=== PATIENT | male | born 1985 | race Caucasian/White ===

== ENCOUNTER 2019-04-21 22:35 | Emergency (ER) | payer MEDICARE, MEDICAID ==
--- NOTE | 2019-04-21 22:46 | EDM.PDOC ---
ED HPI GENERAL MEDICAL PROBLEM - General Chief Complaint: Gastrointestinal Problem Stated Complaint: MEDICAL VIA NORTH Time Seen by Provider: 04/21/19 22:41 Source of Information: Reports: EMS, Old Records, RN History Limitations: Reports: No Limitations - History of Present Illness INITIAL COMMENTS - FREE TEXT/NARRATIVE: 34 yo mentally retarded [facility] resident pulled his G-tube out and the staff discarded it and sent him in by EMS. Patient normally gets his catheters changed in his provider's office so the [facility] does not have a spare does not know the size. Onset: Today Onset Date: 04/21/19 Duration: Minutes: Location: Reports: Abdomen Severity: Mild Improves with: Reports: Other (G-tube replacement) Worsens with: Reports: Other (time elapsed without a catheter in the stoma of the feeding tube site. 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 Constitutional: Reports: No Symptoms GI/Abdominal: Reports: Other (G-tube out.) ED EXAM, GI/ABD - Physical Exam Exam: See Below Exam Limited By: No Limitations General Appearance: Alert, WD/WN, No Apparent Distress GI/Abdominal Exam: Other (G-tube missing.) ED ABDOMINAL/GI PROCEDURES - Additional/Other Procedure(s) Procedure(s) (Free Text): Espitia catheter placed into the G-tube site to keep G-tube site from closing up overnight. Course - Orders/Labs/Meds Orders: Active Orders 24 hr Category Date Time Status Espitia Catheter Insertion [Insert Urinary Catheter] [OM. Care 04/21/19 22:45 Ordered PC] Q24H Urinary Catheter Assessment [RC] ASDIRECTED Care 04/21/19 22:38 Active Departure - Departure Time of Disposition: 22:50 Disposition: Home, Self-Care 01 Condition: Good Clinical Impression: Gastrojejunostomy tube dislodgement - Discharge Information *PRESCRIPTION DRUG MONITORING PROGRAM REVIEWED*: Not Applicable *COPY OF PRESCRIPTION DRUG MONITORING REPORT IN PATIENT THU: Not Applicable Referrals: PCP,None [Primary Care Provider] - Forms: ED Department Discharge Additional Instructions: Have Jerry seen in his provider's office early tomorrow to get a new G-tube placed. Protect the espitia as best you can tonight from dislodgement, this will keep the G-tube site from healing shut. Cannot use the Espitia catheter for feeling tonight. Sepsis Event Note - Focused Exam Date Exam was Performed: 04/21/19 Time Exam was Performed: 22:50 - My Orders Last 24 Hours: My Active Orders 04/21/19 22:38 Urinary Catheter Assessment [RC] ASDIRECTED 04/21/19 22:45 Espitia Catheter Insertion [Insert Urinary Catheter] [OM.PC] Q24H - Assessment/Plan Last 24 Hours: My Active Orders 04/21/19 22:38 Urinary Catheter Assessment [RC] ASDIRECTED 04/21/19 22:45 Espitia Catheter Insertion [Insert Urinary Catheter] [OM.PC] Q24H
== END 2019-04-21 23:18 | disposition home or self-care (01) ==
LOC: JP.ED 22:35
DX: K94.23 Gastrostomy malfunction (principal); Z88.1 Allergy status to other antibiotic agents; Z88.0 Allergy status to penicillin
CPT/HCPCS: 43762; 99283; 99283-25

== ENCOUNTER 2019-04-22 08:55 | Day surgery (SDC) | payer MEDICARE, MEDICAID ==
--- NOTE | 2019-05-03 15:06 | PROC ---
DATE OF PROCEDURE: 04/22/2019 SURGEON: Constantino Burns MD PREOPERATIVE DIAGNOSIS: Dislodged gastrostomy tube. POSTOPERATIVE DIAGNOSIS: Replacement of gastrostomy tube following dilation of gastrostomy ([id number]). ANESTHESIA: None. INDICATION FOR PROCEDURE: A 34-year-old male with a preexisting gastrostomy tube that was dislodged in the residential last night. A small tube had been placed, and the patient presents now to the hospital for replacement of the gastrostomy tube. DETAILS OF PROCEDURE: In the [facility] procedure room, the patient was in a supine position and the previously placed small gastrostomy tube was removed. The gastrostomy was quite narrow at this point and it was then dilated up to a 30-Faroese size with a balloon dilator and following this a 20-Faroese gastrostomy tube was placed and the balloon inflated with some saline and a dressing applied. There were no evident complications. Constantino Burns MD /[id number]
== END 2019-04-22 13:00 | disposition home or self-care (01) ==
LOC: JP.SDS 08:55
PROVIDERS: ATTEND Surgery
DX: T85.528A Displacement of other gastrointestinal prosthetic devices, implants and grafts, initial encounter (principal); K94.23 Gastrostomy malfunction; Y83.3 Surgical operation with formation of external stoma as the cause of abnormal reaction of the patient, or of later complication, without mention of misadventure at the time of the procedure
CPT/HCPCS: 99213

== ENCOUNTER 2019-05-26 22:04 | Emergency (ER) | payer MEDICARE, MEDICAID ==
--- NOTE | 2019-05-26 22:46 | EDM.PDOC ---
ED HPI GENERAL MEDICAL PROBLEM - General Chief Complaint: Genitourinary Problem Stated Complaint: MEDICAL VIA NORTH Time Seen by Provider: 05/26/19 22:30 Source of Information: Reports: Old Records, RN History Limitations: Reports: Other (patient not able to communicate) - History of Present Illness INITIAL COMMENTS - FREE TEXT/NARRATIVE: 34 yo male with severe mental retardation and an indwelling suprapubic catheter is sent in for a nonfunctioning catheter and bloody urine. No fever reported. Lives at the [facility]. Here via EMS. A new catheter had just been placed this morning as part of his routine of monthly catheter changes. Has a hx of frequent UTI's. Onset: Today Onset Date: 05/26/19 Duration: Hour(s): Location: Reports: Pelvis (bladder) Quality: Reports: Other (unknown, not able to verbalize) Severity: Moderate Improves with: Reports: None Worsens with: Reports: Other (? 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 SUPERVISOR: Reports: Other (see below) Other Treatments JEWEL SUPERVISOR: supra pubic catheter removed by nurse - Related Data Allergies Allergy/AdvReac Type Severity Reaction Status Date / Time amoxicillin Allergy Rash Verified 05/26/19 22:15 Penicillins Allergy Rash Verified 05/26/19 22:15 Home Meds: Home Meds Escitalopram [Lexapro] 10 mg PO DAILY 04/21/19 [History] Fluticasone Propionate [Flovent Diskus] 50 mcg IH DAILY 04/21/19 [History] Melatonin 3 mg PO DAILY 04/21/19 [History] Montelukast [Singulair] 10 mg GTUBE DAILY 04/21/19 [History] Multivits w-Min/Ferrous Gluc [Certavite-Antioxidant Liquid] 15 ml GTUBE DAILY [History] Ranitidine [Zantac] 75 mg GTUBE BID 04/21/19 [History] Acetaminophen [M-Pap] 30 ml GTUBE TID PRN 04/22/19 [History] Bisacodyl [Laxative] 5 mg GTUBE DAILY PRN 04/22/19 [History] Carboxymethylcellulose Sodium [Refresh Plus 0.5%] 1 drop EYEBOTH Q3HR PRN [History] hydrOXYzine HCL [hydrOXYzine] 25 mg GTUBE Q6HR PRN 04/22/19 [History] Ketoconazole [Nizoral 2% Crm] 1 applic TOP BID #60 gm 05/26/19 [Rx] Past Medical History Respiratory History: Reports: Asthma, Other (See Below) Other Respiratory History: Chronic respiratory Failure Gastrointestinal History: Reports: Chronic Constipation, GERD, Other (See Below) Other Gastrointestinal History: Severe protein-calorie malnutrition Genitourinary History: Reports: Retention, Urinary, UTI, Recurrent Other Genitourinary History: Neurogenic bladder has a supra pubic catheter with leg bag Musculoskeletal History: Reports: Other (See Below) Other Musculoskeletal History: Generalized muscle weakness Neurological History: Reports: Cerebral Palsy, Other (See Below) 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 Psychiatric History: Reports: Developmental Delay, Other (See Below) Other Psychiatric History: sleep disorder Endocrine/Metabolic History: Reports: Hypomagnesemia Hematologic History: Reports: Anemia, Idiopathic Thrombocytopenia - Past Surgical History Head Surgeries/Procedures: Reports: None GI Surgical History: Reports: Other (See Below) Other GI Surgeries/Procedures: g tube for tube feeding Male Surgical History: Reports: Suprapubic Catheter Placement ED ROS GENERAL - Review of Systems Review Of Systems: Unable To Obtain Reason Not Obtained: Severe retardation Constitutional: Reports: Other (seems restless, ? old vs new). Denies: Fever, Chills : Reports: Hematuria, Other (espitia not in his bladder on arrival ) ED EXAM, RENAL/ - Physical Exam Exam: See Below Exam Limited By: No Limitations General Appearance: Alert, WD/WN, Mild Distress (anxious, somewhat restless) Eye Exam: Bilateral Eye: Normal Inspection Ears: Normal External Exam, Normal Canal Nose: Normal Inspection, No Blood Throat/Mouth: Normal Inspection Head: Atraumatic, Normocephalic Neck: Normal Inspection Respiratory/Chest: No Respiratory Distress, No Accessory Muscle Use (Male) Exam: Other (Has what appears to be a torn under surface of his glans , the age of this is not clear. There is no current active bleeding. ) Extremities: Normal Inspection Neurological: Alert Psychiatric: Anxious Skin Exam: Warm, Dry, Intact, Normal Color, Rash (He has what appears to be a fungal rash in the groin area that excludes the scrotum. ) Course - Vital Signs Text/Narrative:: bladder scan- Last Recorded V/S: Last Vital Signs Temp 35.4 C L 05/26/19 22:14 Pulse 77 05/26/19 22:14 Resp 14 05/26/19 22:14 BP 104/65 05/26/19 22:14 Pulse Ox 98 05/26/19 22:14 - Orders/Labs/Meds Orders: Active Orders 24 hr Category Date Time Status Bladder Scan [RC] ASDIRECTED Care 05/26/19 22:40 Active CULTURE URINE [RM] Stat Lab 05/26/19 23:22 Received - Re-Assessments/Exams Free Text/Narrative Re-Assessment/Exam: 05/26/19 23:05 Nursing changed his suprapubic catheter and the urine flowed freely and without any evidence of blood. Departure - Departure Time of Disposition: 00:40 Disposition: Home, Self-Care 01 Condition: Good Clinical Impression: Tinea cruris Urinary catheter dysfunction Qualifiers: Encounter type: initial encounter Qualified Code(s): T83.018A - Breakdown ( mechanical) of other urinary catheter, initial encounter - Discharge Information *PRESCRIPTION DRUG MONITORING PROGRAM REVIEWED*: Not Applicable *COPY OF PRESCRIPTION DRUG MONITORING REPORT IN PATIENT THU: Not Applicable Prescriptions: Ketoconazole [Nizoral 2% Crm] 1 applic TOP BID #60 gm Referrals: PCP,None [Primary Care Provider] - Forms: ED Department Discharge Additional Instructions: Apply Nizoral cream to the red areas of his groin bid, excluding the scrotum, until the rash is gone. A culture was set up of his urine today which will be available for review in 2-3 days. Sepsis Event Note - Evaluation Sepsis Screening Result: No Definite Risk - Focused Exam Vital Signs: Vital Signs Temp Pulse Resp BP Pulse Ox 05/26/19 22:14 35.4 C L 77 14 104/65 98 05/26/19 22:07 35.4 C L 75 16 101/69 98 Date Exam was Performed: 05/27/19 Time Exam was Performed: 00:24 - My Orders Last 24 Hours: My Active Orders 05/26/19 22:40 Bladder Scan [RC] ASDIRECTED 05/26/19 23:22 CULTURE URINE [RM] Stat - Assessment/Plan Last 24 Hours: My Active Orders 05/26/19 22:40 Bladder Scan [RC] ASDIRECTED 05/26/19 23:22 CULTURE URINE [RM] Stat
== END 2019-05-27 01:12 | disposition home or self-care (01) ==
LOC: JP.ED 22:04
DX: T83.011A Breakdown (mechanical) of indwelling urethral catheter, initial encounter (principal); B35.6 Tinea cruris; Z88.1 Allergy status to other antibiotic agents; Z88.0 Allergy status to penicillin
CPT/HCPCS: 51705; 51798; 87086; 87088; 87186; 99283; 99284-25

== ENCOUNTER 2019-09-01 15:24 | Emergency (ER) | payer MEDICARE, MEDICAID ==
--- NOTE | 2019-09-01 16:15 | EDM.PDOC ---
ED HPI GENERAL MEDICAL PROBLEM - General Chief Complaint: Skin Complaint Stated Complaint: FEEDING TUBE TROUBLE Time Seen by Provider: 09/01/19 15:50 - History of Present Illness INITIAL COMMENTS - FREE TEXT/NARRATIVE: patient is a new resident at the [facility] adult foster [facility]dc in [place] and he is brought in today for c/o oozing and redness around his feeding tube and perianal/ diaper rash. 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: Reports: Other (see below) (ointment) - Related Data Allergies Allergy/AdvReac Type Severity Reaction Status Date / Time amoxicillin Allergy Rash Verified 09/01/19 15:40 Penicillins Allergy Rash Verified 09/01/19 15:40 Home Meds: Home Meds Escitalopram [Lexapro] 10 mg PO DAILY 04/21/19 [History] Fluticasone Propionate [Flovent Diskus] 50 mcg IH DAILY 04/21/19 [History] Melatonin 3 mg PO DAILY 04/21/19 [History] Montelukast [Singulair] 10 mg GTUBE DAILY 04/21/19 [History] Multivits w-Min/Ferrous Gluc [Certavite-Antioxidant Liquid] 15 ml GTUBE DAILY 04/21/19 [History] Acetaminophen [M-Pap] 30 ml GTUBE TID PRN 04/22/19 [History] Carboxymethylcellulose Sodium [Refresh Plus 0.5%] 1 drop EYEBOTH Q3HR PRN 04/22/19 [History] Ketoconazole [Nizoral 2% Crm] 1 applic TOP BID #60 gm 05/26/19 [Rx] Atropine Sulfate [Isopto Atropine] 2 ml PO ASDIRECTED 09/01/19 [History] Nystatin [Nystatin Crm] 1 applic TOP BID #1 tube 09/01/19 [Rx] polyethylene glycoL 3350 [MiraLAX] 17 gm GTUBE DAILY 09/01/19 [History] Past Medical History Respiratory History: Reports: Asthma, Other (See Below) Other Respiratory History: Chronic respiratory Failure Gastrointestinal History: Reports: Chronic Constipation, GERD, Other (See Below) Other Gastrointestinal History: Severe protein-calorie malnutrition Genitourinary History: Reports: Retention, Urinary, UTI, Recurrent Other Genitourinary History: Neurogenic bladder has a supra pubic catheter with leg bag Musculoskeletal History: Reports: Other (See Below) Other Musculoskeletal History: Generalized muscle weakness Neurological History: Reports: Cerebral Palsy, Other (See Below) 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 Psychiatric History: Reports: Developmental Delay, Other (See Below) Other Psychiatric History: sleep disorder Endocrine/Metabolic History: Reports: Hypomagnesemia Hematologic History: Reports: Anemia, Idiopathic Thrombocytopenia - Past Surgical History Head Surgeries/Procedures: Reports: None GI Surgical History: Reports: Other (See Below) Other GI Surgeries/Procedures: g tube for tube feeding Male Surgical History: Reports: Suprapubic Catheter Placement Social & Family History - Tobacco Use Smoking Status *Q: Never Smoker - Caffeine Use Caffeine Use: Reports: None ED ROS GENERAL - Review of Systems Review Of Systems: See Below Constitutional: Reports: No Symptoms HEENT: Reports: No Symptoms Respiratory: Reports: No Symptoms Cardiovascular: Reports: No Symptoms Endocrine: Reports: No Symptoms GI/Abdominal: Reports: Other (redness around feeding tube) : Reports: Incontinence (to diaper area/ perianal ) Musculoskeletal: Reports: No Symptoms Skin: Reports: Rash Neurological: Reports: Pre-Existing Deficit Psychiatric: Reports: No Symptoms Hematologic/Lymphatic: Reports: No Symptoms Immunologic: Reports: No Symptoms ED EXAM, SKIN/RASH Exam: See Below Exam Limited By: Other (information obtained from group tester that is present with patient.) General Appearance: No Apparent Distress Respiratory/Chest: No Respiratory Distress, Lungs Clear, Normal Breath Sounds Cardiovascular: Regular Rate, Rhythm GI/Abdominal: Normal Bowel Sounds, Soft, Non-Tender, No Distention, No Mass, Other (feeding tube present. mild erythema at stoma. no signs of infection. flange around tube very loose. no oozing noted. ) Rectal (Males) Exam: Other (mild erythematous perianal rash extending along the intergluteal cleft. ) Back Exam: Normal Inspection Extremities: Normal Inspection Neurological: Sensory/Motor Deficit (cerebral palsy and developmental delay) Skin: Warm, Dry, Rash (perianal ) Location, Skin: Perirectal Characteristics: Maculopapular, Fine, Erythematous Lymphatic: No Adenopathy Course - Vital Signs Last Recorded V/S: Last Vital Signs Temp 97 F 09/01/19 15:45 Pulse 57 L 09/01/19 15:45 Resp 12 09/01/19 15:45 BP 94/56 L 09/01/19 15:45 Pulse Ox 96 09/01/19 15:45 Departure - Departure Time of Disposition: 16:09 Disposition: Home, Self-Care 01 Condition: Good Clinical Impression: Irritation around percutaneous endoscopic gastrostomy (PEG) tube site, Contact dermatitis, Yeast dermatitis - Discharge Information *PRESCRIPTION DRUG MONITORING PROGRAM REVIEWED*: No *COPY OF PRESCRIPTION DRUG MONITORING REPORT IN PATIENT THU: No Prescriptions: Nystatin [Nystatin Crm] 1 applic TOP BID #1 tube Instructions: Genital Yeast Infection, Male Referrals: Shaun Hayden MD [Primary Care Provider] - Additional Instructions: use the nystatin cream twice daily until healed. you may mix with the A&D ointment you are currently using. Keep the plastic flange around the feeding tube a little tighter to the skin and you may find it oozes less. Keep the gauze and you can continue to use the ointment as needed. Keep your appointment with the doctor on friday. Call or return to ED with any worsening or concerning symptoms. Sepsis Event Note (ED) - Evaluation Sepsis Screening Result: No Definite Risk - Focused Exam Vital Signs: Vital Signs Temp Pulse Resp BP Pulse Ox 09/01/19 15:45 97 F 57 L 12 94/56 L 96 09/01/19 15:41 97 F 57 L 12 94/56 L 96 - Assessment/Plan Plan: discharge back to home with caregiver. script for nystatin cream for yeast dermatitis
== END 2019-09-01 16:42 | disposition home or self-care (01) ==
LOC: JP.ED 15:24
DX: K94.29 Other complications of gastrostomy (principal); B37.2 Candidiasis of skin and nail; J45.909 Unspecified asthma, uncomplicated; G80.9 Cerebral palsy, unspecified; R62.50 Unspecified lack of expected normal physiological development in childhood; Z79.899 Other long term (current) drug therapy; Z88.1 Allergy status to other antibiotic agents; Z88.0 Allergy status to penicillin
CPT/HCPCS: 99282

== ENCOUNTER 2020-01-30 09:39 | Emergency (ER) | payer MEDICARE, MEDICAID ==
--- NOTE | 2020-01-30 10:20 | EDM.PDOC ---
ED HPI GENERAL MEDICAL PROBLEM - General Chief Complaint: Genitourinary Problem Stated Complaint: CATHETER FELL OUT Time Seen by Provider: 01/30/20 10:05 Source of Information: Reports: Patient, Old Records, RN, Other (home care liaison) History Limitations: Reports: No Limitations - History of Present Illness INITIAL COMMENTS - FREE TEXT/NARRATIVE: 34 yo male is brought in from his retirement for replacement of a suprapubic catheter. No fevers. 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: Reports: Other (see below) (none) - Related Data Allergies Allergy/AdvReac Type Severity Reaction Status Date / Time amoxicillin Allergy Rash Verified 01/30/20 09:50 Penicillins Allergy Rash Verified 01/30/20 09:50 Home Meds: Home Meds Escitalopram [Lexapro] 10 mg PO DAILY 04/21/19 [History] Melatonin 3 mg PO DAILY 04/21/19 [History] Montelukast [Singulair] 10 mg GTUBE DAILY 04/21/19 [History] Multivits w-Min/Ferrous Gluc [Certavite-Antioxidant Liquid] 15 ml GTUBE DAILY 04/21/19 [History] Acetaminophen [M-Pap] 30 ml GTUBE TID PRN 04/22/19 [History] Carboxymethylcellulose Sodium [Refresh Plus 0.5%] 1 drop EYEBOTH Q3HR PRN 04/22/19 [History] Ketoconazole [Nizoral 2% Crm] 1 applic TOP BID #60 gm 05/26/19 [Rx] Nystatin [Nystatin Crm] 1 applic TOP BID #1 tube 09/01/19 [Rx] Famotidine [Pepcid] 2.5 ml GTUBE DAILY 10/12/19 [History] Sulfamethoxazole/Trimethoprim [Septra Susp 200-40 MG/5 ML] 20 ml PO Q12H #240 ml 01/30/20 [Rx] Past Medical History Respiratory History: Reports: Asthma, Other (See Below) Other Respiratory History: Chronic respiratory Failure Gastrointestinal History: Reports: Chronic Constipation, GERD, Other (See Below) Other Gastrointestinal History: Severe protein-calorie malnutrition Genitourinary History: Reports: Retention, Urinary, UTI, Recurrent Other Genitourinary History: Neurogenic bladder has a supra pubic catheter with leg bag Musculoskeletal History: Reports: Other (See Below) Other Musculoskeletal History: Generalized muscle weakness Neurological History: Reports: Cerebral Palsy, Other (See Below) 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 Psychiatric History: Reports: Developmental Delay, Other (See Below) Other Psychiatric History: sleep disorder Endocrine/Metabolic History: Reports: Hypomagnesemia Hematologic History: Reports: Anemia, Idiopathic Thrombocytopenia - Past Surgical History Head Surgeries/Procedures: Reports: None GI Surgical History: Reports: Other (See Below) Other GI Surgeries/Procedures: g tube for tube feeding Male Surgical History: Reports: Suprapubic Catheter Placement Social & Family History - Tobacco Use Tobacco Use Status *Q: Never Tobacco User - Caffeine Use Caffeine Use: Reports: None - Recreational Drug Use Recreational Drug Use: No ED ROS GENERAL - Review of Systems Review Of Systems: Unable To Obtain Reason Not Obtained: severe retardation, home care liaison provides some info Constitutional: Denies: Fever, Chills Respiratory: Denies: Cough GI/Abdominal: Denies: Diarrhea : Reports: Other (catheter fell out) ED EXAM, RENAL/ - Physical Exam Exam: See Below Exam Limited By: No Limitations General Appearance: Alert, WD/WN, No Apparent Distress Eye Exam: Bilateral Eye: Normal Inspection Ears: Normal External Exam Nose: Normal Inspection, No Blood Throat/Mouth: Normal Inspection, Normal Lips, No Airway Compromise Head: Atraumatic, Normocephalic Neck: Normal Inspection Respiratory/Chest: No Respiratory Distress, Lungs Clear, Normal Breath Sounds, No Accessory Muscle Use Cardiovascular: Regular Rate, Rhythm, No Edema GI/Abdominal: Soft, Non-Tender Extremities: Normal Inspection Neurological: Alert Skin Exam: Warm, Dry, Intact, Normal Color, No Rash Course - Vital Signs Text/Narrative:: suprapubic catheter replaced per RN. Awaiting sufficient volume of urine for a UA. Last Recorded V/S: Last Vital Signs Temp 36.2 C 01/30/20 10:14 Pulse 62 01/30/20 10:14 Resp 16 01/30/20 10:14 BP 82/46 L 01/30/20 10:14 Pulse Ox 95 01/30/20 10:14 - Orders/Labs/Meds Orders: Active Orders 24 hr Category Date Time Status Hendrix Catheter Insertion [Insert Urinary Catheter] [OM. Care 01/30/20 10:15 Ordered PC] Q24H Urinary Catheter Assessment [RC] ASDIRECTED Care 01/30/20 10:12 Active CULTURE URINE [RM] Stat Lab 01/30/20 12:32 Ordered Sulfamethoxazole/Trimethoprim [Septra] Med 01/30/20 12:33 Stat 20 ml PO NOW STA Medication Orders Trimethoprim/Sulfamethoxazole (Septra) 20 ml PO NOW STA Stop: 01/30/20 12:34 Labs: Laboratory Tests 01/30/20 Range/Units 12:06 Urine Color Yellow (YELLOW) Urine Appearance Cloudy A (CLEAR) Urine pH 8.5 H (5.0-8.0) Ur Specific [place] 1.020 (1.008-1.030) Urine Protein 100 H (NEGATIVE) mg/dL Urine Glucose (UA) Negative (NEGATIVE) mg/dL Urine Ketones Negative (NEGATIVE) mg/dL Urine Occult Blood Moderate H (NEGATIVE) Urine Nitrite Negative (NEGATIVE) Urine Bilirubin Negative (NEGATIVE) Urine Urobilinogen 0.2 (0.2-1.0) EU/dL Ur Leukocyte Esterase Large H (NEGATIVE) Urine RBC 10-20 H (0-5) Urine WBC >100 H (0-5) Ur Epithelial Cells Not seen Amorphous Sediment Many Urine Bacteria Moderate Urine Mucus Not seen Meds: Medications Generic Name Dose Route Start Last Admin Trade Name Freq PRN Reason Stop Dose Admin Trimethoprim/Sulfamethoxazole 20 ml 01/30/20 12:33 Septra PO 01/30/20 12:34 NOW STA Departure - Departure Time of Disposition: 12:40 Disposition: Home, Self-Care 01 Condition: Fair Clinical Impression: Catheter (urine) change required UTI (urinary tract infection) Qualifiers: Urinary tract infection type: acute cystitis Hematuria presence: without hemat uria Qualified Code(s): N30.00 - Acute cystitis without hematuria - Discharge Information *PRESCRIPTION DRUG MONITORING PROGRAM REVIEWED*: Not Applicable *COPY OF PRESCRIPTION DRUG MONITORING REPORT IN PATIENT THU: Not Applicable Prescriptions: Sulfamethoxazole/Trimethoprim [Septra Susp 200-40 MG/5 ML] 20 ml PO Q12H #240 ml Referrals: Shaun Hayden MD [Primary Care Provider] - Forms: ED Department Discharge Additional Instructions: Give TMP/SMZ 20 ml per G-tube every 12 hrs. Recheck with his doctor in 3 days to review his urine culture and make sure he is on the correct antibiotic. Return as needed. Sepsis Event Note (ED) - Focused Exam Vital Signs: Vital Signs Temp Pulse Resp BP Pulse Ox 01/30/20 10:14 36.2 C 62 16 82/46 L 95 - My Orders Last 24 Hours: My Active Orders 01/30/20 10:12 Urinary Catheter Assessment [RC] ASDIRECTED 01/30/20 10:15 Hendrix Catheter Insertion [Insert Urinary Catheter] [OM.PC] Q24H 01/30/20 12:32 CULTURE URINE [RM] Stat 01/30/20 12:33 Sulfamethoxazole/Trimethoprim [Septra] 20 ml PO NOW STA - Assessment/Plan Last 24 Hours: My Active Orders 01/30/20 10:12 Urinary Catheter Assessment [RC] ASDIRECTED 01/30/20 10:15 Hendrix Catheter Insertion [Insert Urinary Catheter] [OM.PC] Q24H 01/30/20 12:32 CULTURE URINE [RM] Stat 01/30/20 12:33 Sulfamethoxazole/Trimethoprim [Septra] 20 ml PO NOW STA
[2020-01-30] MEDS ORDERED: Sulfamethoxazole/Trimethoprim 200-40 MG/5 ML Susp ML (473 ML Bottle) PO STA (12:40)
== END 2020-01-30 12:52 | disposition home or self-care (01) ==
LOC: JP.ED 09:39
DX: Z46.6 Encounter for fitting and adjustment of urinary device (principal); N30.00 Acute cystitis without hematuria; K21.9 Gastro-esophageal reflux disease without esophagitis; J45.909 Unspecified asthma, uncomplicated; Z88.0 Allergy status to penicillin; Z88.1 Allergy status to other antibiotic agents; Z79.899 Other long term (current) drug therapy
CPT/HCPCS: 51702; 81001; 87086; 87088; 87186; 99283; 99283-25; A9270-GY

== ENCOUNTER 2020-03-11 07:18 | Emergency (ER) | payer MEDICARE, MEDICAID ==
--- NOTE | 2020-03-11 08:29 | EDM.PDOC ---
ED HPI GENERAL MEDICAL PROBLEM - General Chief Complaint: Genitourinary Problem Stated Complaint: CATHETER TUBE FALLING OUT Time Seen by Provider: 03/11/20 08:25 Source of Information: Reports: Patient, Family, RN Notes Reviewed History Limitations: Reports: No Limitations - History of Present Illness INITIAL COMMENTS - FREE TEXT/NARRATIVE: 35-year-old gentleman presents emergency department a day complaint of dislodged suprapubic catheter. Caregivers also noticed that his urine has been cloudy. He is noncommunicative majority is this H&P is taken from chart review and from family members denies Pain Score (Numeric/FACES): 0 - Related Data Allergies Allergy/AdvReac Type Severity Reaction Status Date / Time amoxicillin Allergy Rash Verified 03/11/20 07:23 Penicillins Allergy Rash Verified 03/11/20 07:23 Home Meds: Home Meds Escitalopram [Lexapro] 10 mg PO DAILY 04/21/19 [History] Melatonin 3 mg PO DAILY 04/21/19 [History] Montelukast [Singulair] 10 mg GTUBE DAILY 04/21/19 [History] Multivits w-Min/Ferrous Gluc [Certavite-Antioxidant Liquid] 15 ml GTUBE DAILY 04/21/19 [History] Acetaminophen [M-Pap] 30 ml GTUBE TID PRN 04/22/19 [History] Carboxymethylcellulose Sodium [Refresh Plus 0.5%] 1 drop EYEBOTH Q3HR PRN 04/22/19 [History] Ketoconazole [Nizoral 2% Crm] 1 applic TOP BID #60 gm 05/26/19 [Rx] Nystatin [Nystatin Crm] 1 applic TOP BID #1 tube 09/01/19 [Rx] Famotidine [Pepcid] 2.5 ml GTUBE DAILY 10/12/19 [History] Fidaxomicin [Dificid] 200 mg PO BID 03/11/20 [History] Past Medical History Respiratory History: Reports: Asthma, Other (See Below) Other Respiratory History: Chronic respiratory Failure Gastrointestinal History: Reports: Chronic Constipation, GERD, Other (See Below) Other Gastrointestinal History: Severe protein-calorie malnutrition Genitourinary History: Reports: Retention, Urinary, UTI, Recurrent Other Genitourinary History: Neurogenic bladder has a supra pubic catheter with leg bag Musculoskeletal History: Reports: Other (See Below) Other Musculoskeletal History: Generalized muscle weakness Neurological History: Reports: Cerebral Palsy, Other (See Below) 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 Psychiatric History: Reports: Developmental Delay, Other (See Below) Other Psychiatric History: sleep disorder Endocrine/Metabolic History: Reports: Hypomagnesemia Hematologic History: Reports: Anemia, Idiopathic Thrombocytopenia - Past Surgical History Head Surgeries/Procedures: Reports: None GI Surgical History: Reports: Other (See Below) Other GI Surgeries/Procedures: g tube for tube feeding Male Surgical History: Reports: Suprapubic Catheter Placement Social & Family History - Tobacco Use Tobacco Use Status *Q: Never Tobacco User Second Hand Smoke Exposure: No - Caffeine Use Caffeine Use: Reports: None - Recreational Drug Use Recreational Drug Use: No ED ROS GENERAL - Review of Systems Review Of Systems: Unable To Obtain Reason Not Obtained: Vocal cord paralysis ED EXAM, RENAL/ - Physical Exam Exam: See Below Exam Limited By: No Limitations General Appearance: Alert, No Apparent Distress Respiratory/Chest: No Respiratory Distress Course - Vital Signs Last Recorded V/S: Last Vital Signs Temp 98 F 03/11/20 07:42 Pulse 58 L 03/11/20 07:42 Resp 16 03/11/20 07:42 BP 86/43 L 03/11/20 07:42 Pulse Ox 94 L 03/11/20 07:42 - Orders/Labs/Meds Labs: Laboratory Tests 03/11/20 Range/Units 08:14 Urine Color Yellow (YELLOW) Urine Appearance Cloudy A (CLEAR) Urine pH 7.0 (5.0-8.0) Ur Specific [place] 1.010 (1.008-1.030) Urine Protein 100 H (NEGATIVE) mg/dL Urine Glucose (UA) Negative (NEGATIVE) mg/dL Urine Ketones Negative (NEGATIVE) mg/dL Urine Occult Blood Moderate H (NEGATIVE) Urine Nitrite Negative (NEGATIVE) Urine Bilirubin Negative (NEGATIVE) Urine Urobilinogen 0.2 (0.2-1.0) EU/dL Ur Leukocyte Esterase Large H (NEGATIVE) Urine RBC 20-30 H (0-5) Urine WBC 30-40 H (0-5) Ur Epithelial Cells Not seen Amorphous Sediment Many Urine Bacteria Moderate Urine Mucus Rare Departure - Departure Time of Disposition: 08:28 Disposition: Home, Self-Care 01 Condition: Fair Clinical Impression: UTI, Urinary tract infectious disease - Discharge Information Instructions: Urinary Tract Infection, Adult, [id number] Referrals: Shaun Hayden MD [Primary Care Provider] - Additional Instructions: Take full course of antibiotics, please followup with your primary care provider in 7-10 days if not better, please call return to the emergency department with worsening of symptoms. Sepsis Event Note (ED) - Evaluation Sepsis Screening Result: No Definite Risk - Focused Exam Vital Signs: Vital Signs Temp Pulse Resp BP Pulse Ox 03/11/20 07:42 98 F 58 L 16 86/43 L 94 L - Assessment/Plan Plan: Assessment Acuity = acute Site and laterality = suprapubic catheter dislodgment Etiology = unknown Manifestations = none Location of injury = Home Lab values = urinalysis does demonstrate both pyuria and hematuria consistent with infection urine cultures pending Plan Catheter was replaced by nursing staff caregivers feel he is back to his normal self will cover with Bactrim DS 1 tab p.o. twice daily x14 days until culture results return This note was dictated using [employer] voice recognition software please call with any questions on syntax or grammar.
== END 2020-03-11 08:43 | disposition home or self-care (01) ==
LOC: JP.ED 07:18
DX: N39.0 Urinary tract infection, site not specified (principal); Z43.5 Encounter for attention to cystostomy; J45.909 Unspecified asthma, uncomplicated; G80.9 Cerebral palsy, unspecified; Z88.0 Allergy status to penicillin; Z79.899 Other long term (current) drug therapy; K21.9 Gastro-esophageal reflux disease without esophagitis
CPT/HCPCS: 51102; 81001; 87086; 87088; 87186; 99283; 99283-25

== ENCOUNTER 2020-04-15 17:45 | Emergency (ER) | payer MEDICARE, MEDICAID ==
--- NOTE | 2020-04-15 18:22 | EDM.PDOC ---
ED HPI GENERAL MEDICAL PROBLEM - General Chief Complaint: Genitourinary Problem Stated Complaint: CATHETER TUBE OUT Time Seen by Provider: 04/15/20 18:31 Source of Information: Reports: Patient History Limitations: Reports: No Limitations - History of Present Illness INITIAL COMMENTS - FREE TEXT/NARRATIVE: pt had leakage around his neprostomy tube. Onset: Today Duration: Hour(s): Location: Reports: Abdomen Associated Symptoms: Reports: No Other Symptoms - Related Data Allergies Allergy/AdvReac Type Severity Reaction Status Date / Time amoxicillin Allergy Rash Verified 04/15/20 18:15 Penicillins Allergy Rash Verified 04/15/20 18:15 Home Meds: Home Meds Escitalopram [Lexapro] 10 mg PO DAILY 04/21/19 [History] Melatonin 3 mg PO DAILY 04/21/19 [History] Montelukast [Singulair] 10 mg GTUBE DAILY 04/21/19 [History] Multivits w-Min/Ferrous Gluc [Certavite-Antioxidant Liquid] 15 ml GTUBE DAILY 04/21/19 [History] Acetaminophen [M-Pap] 30 ml GTUBE TID PRN 04/22/19 [History] Carboxymethylcellulose Sodium [Refresh Plus 0.5%] 1 drop EYEBOTH Q3HR PRN 04/22/19 [History] Ketoconazole [Nizoral 2% Crm] 1 applic TOP BID #60 gm 05/26/19 [Rx] Nystatin [Nystatin Crm] 1 applic TOP BID #1 tube 09/01/19 [Rx] Famotidine [Pepcid] 2.5 ml GTUBE DAILY 10/12/19 [History] Fidaxomicin [Dificid] 200 mg PO BID 03/11/20 [History] Past Medical History Respiratory History: Reports: Asthma, Other (See Below) Other Respiratory History: Chronic respiratory Failure Gastrointestinal History: Reports: Chronic Constipation, GERD, Other (See Below) Other Gastrointestinal History: Severe protein-calorie malnutrition Genitourinary History: Reports: Retention, Urinary, UTI, Recurrent Other Genitourinary History: Neurogenic bladder has a supra pubic catheter with leg bag Musculoskeletal History: Reports: Other (See Below) Other Musculoskeletal History: Generalized muscle weakness Neurological History: Reports: Cerebral Palsy, Other (See Below) 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 Psychiatric History: Reports: Developmental Delay, Other (See Below) Other Psychiatric History: sleep disorder Endocrine/Metabolic History: Reports: Hypomagnesemia Hematologic History: Reports: Anemia, Idiopathic Thrombocytopenia - Past Surgical History Head Surgeries/Procedures: Reports: None GI Surgical History: Reports: Other (See Below) Other GI Surgeries/Procedures: g tube for tube feeding Male Surgical History: Reports: Suprapubic Catheter Placement Social & Family History - Caffeine Use Caffeine Use: Reports: None ED ROS GENERAL - Review of Systems Review Of Systems: See Below Constitutional: Reports: No Symptoms HEENT: Reports: No Symptoms Respiratory: Reports: No Symptoms Cardiovascular: Reports: No Symptoms Endocrine: Reports: No Symptoms GI/Abdominal: Reports: No Symptoms : Reports: Other (nephrostomy tube) Musculoskeletal: Reports: No Symptoms Skin: Reports: No Symptoms (nephrostomy ) Neurological: Reports: No Symptoms Psychiatric: Reports: No Symptoms ED EXAM, GI/ABD - Physical Exam Exam: See Below Text/Narrative:: pt is handicapped and has his nephrostomy tube out. This was replaced without difficulty. Pt has not change inhis staus otherwise. Exam Limited By: No Limitations General Appearance: Alert, Anxious (Male) Exam: Other ( supra pupic was replaced without difficulty. ) Rectal (Males) Exam: Deferred Back Exam: Normal Inspection Extremities: Normal Inspection Neurological: Alert, Oriented, Normal Cognition Course - Vital Signs Last Recorded V/S: Last Vital Signs Temp 35.2 C L 04/15/20 18:16 Pulse 54 L 04/15/20 18:16 Resp 16 04/15/20 18:16 BP 109/58 L 04/15/20 18:16 Pulse Ox 100 04/15/20 18:16 - Orders/Labs/Meds Labs: Laboratory Tests 04/15/20 Range/Units 18:30 Urine Color Yellow (YELLOW) Urine Appearance Slightly cloudy A (CLEAR) Urine pH 7.0 (5.0-8.0) Ur Specific [place] 1.010 (1.008-1.030) Urine Protein Negative (NEGATIVE) mg/dL Urine Glucose (UA) Negative (NEGATIVE) mg/dL Urine Ketones Negative (NEGATIVE) mg/dL Urine Occult Blood Large H (NEGATIVE) Urine Nitrite Negative (NEGATIVE) Urine Bilirubin Negative (NEGATIVE) Urine Urobilinogen 0.2 (0.2-1.0) EU/dL Ur Leukocyte Esterase Moderate H (NEGATIVE) Urine RBC 5-10 H (0-5) Urine WBC 5-10 H (0-5) Ur Epithelial Cells Few Amorphous Sediment Few Urine Bacteria Few Urine Mucus Occasional - Re-Assessments/Exams Free Text/Narrative Re-Assessment/Exam: 04/15/20 19:27 Ua did not have sig bacteria in the urine. No antibiotic was used. Departure - Departure Time of Disposition: 19:10 Disposition: Home, Self-Care 01 Condition: Fair Clinical Impression: Nephrostomy tube displaced - Discharge Information Referrals: Shaun Hayden MD [Primary Care Provider] - Forms: ED Department Discharge Care Plan Goals: continue same meds, rtc if problems. Sepsis Event Note (ED) - Focused Exam Vital Signs: Vital Signs Temp Pulse Resp BP Pulse Ox 04/15/20 18:16 35.2 C L 54 L 16 109/58 L 100 04/15/20 17:58 35.2 C L 54 L 16 109/58 L 100
== END 2020-04-15 19:27 | disposition home or self-care (01) ==
LOC: JP.ED 17:45
DX: T83.022A Displacement of nephrostomy catheter, initial encounter (principal); K21.9 Gastro-esophageal reflux disease without esophagitis; G80.9 Cerebral palsy, unspecified; J45.909 Unspecified asthma, uncomplicated; Z79.899 Other long term (current) drug therapy; Z88.0 Allergy status to penicillin
CPT/HCPCS: 81001; 99283

== ENCOUNTER 2020-06-06 06:34 | Inpatient (IN) | payer MEDICARE, MEDICAID ==
[2020-06-06] MEDS ORDERED: fentaNYL 100 MCG/2 ML SDV ONE (07:04)
[2020-06-06] MEDS ORDERED: Midazolam 1 MG/ML 2 ML SDV ONE (07:04)
[2020-06-06] MEDS ORDERED: Propofol 200 MG/20 ML SDV ONE (07:04)
[2020-06-06] MEDS ORDERED: Lactated Ringers 500 ML IV ONE (08:29)
[2020-06-06] MEDS ORDERED: Barium Sulfate 105% w/v Susp 1,900 ML Bottle PO ONE (09:30)
--- NOTE | 2020-06-06 12:48 | CR ---
Barium Enema Comp CLINICAL HISTORY: Right colon mucosal lesion FINDINGS: Preliminary film of the abdomen is unremarkable. Barium flowed from rectum to the hepatic flexure and upper ascending colon. There was retained liquid stool throughout. Patient had intermittent spasm in the sigmoid colon which along with incontinence, limited evaluation. Additional attempts were made to fill the lower portion of the right colon and cecum unsuccessfully. IMPRESSION: Incomplete filling of the right colon with blockage at the mid ascending colon. This is in the same area as the filling defect is identified on CT. An annular mucosal lesion is still suspected though not well demonstrated.
[2020-06-06] MEDS: Dextrose 5%-Lactated Ringers 1,000 ML IV SCH (14:33)
--- NOTE | 2020-06-06 17:02 | PCM.CONS ---
H&P History of Present Illness - General Date of Service: 06/06/20 Source of Information: Provider, RN Notes Reviewed, Other (Staff at halfway) History Limitations: Reports: Altered Mental Status (Congenital cognitive impairment) - History of Present Illness Initial Comments - Free Text/Narative: Mr. Trinh is a 35-year-old gentleman who I been asked to see by Dr. Burns for hospitalist consult prior to planned resection of a right colon mass. Mr. 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 He currently resides in a halfway. He has a feeding tube because of episodes of recurrent aspiration pneumonia with respiratory compromise. He also has a suprapubic catheter because of neurogenic bladder. Over the past 3 months is noted to have been experiencing progressive weight loss and also found to have elevated liver studies. CT scan of the abdomen was obtained and showed evidence of a right colon mass. He was scheduled for colonoscopy today, unfortunately colonoscopy could not be completed because of tortuous bowel. Barium enema was performed which also showed evidence of a right colon mass consistent with that seen on the CT scan. He has been admitted with planned surgery in 2 days time for right colon resection. Ziggy is unable to provide meaningful information concerning symptoms or review of systems because of his cognitive impairment. Has a history of recurrent C. difficile infections, previously treated with vancomycin and one course of Fidaxomicin. C. difficile test was obtained this morning and found to be positive. - Related Data Allergies/Adverse Reactions: Allergies Allergy/AdvReac Type Severity Reaction Status Date / Time amoxicillin Allergy Rash Verified 06/05/20 07:46 Penicillins Allergy Rash Verified 06/05/20 07:46 Home Medications: Home Meds Melatonin 5 mg PO BEDTIME 04/21/19 [History] Montelukast [Singulair] 10 mg GTUBE DAILY 04/21/19 [History] Multivits w-Min/Ferrous Gluc [Certavite-Antioxidant Liquid] 15 ml GTUBE DAILY 04/21/19 [History] Famotidine [Pepcid] 2.5 ml GTUBE DAILY 10/12/19 [History] Lactose-Reduced Food/Fiber [Jevity 1.5 Osvaldo Liquid] 8 oz GTUBE QID 06/05/20 [History] Past Medical History Respiratory History: Reports: Asthma, Other (See Below) Other Respiratory History: Chronic respiratory Failure Gastrointestinal History: Reports: Chronic Constipation, GERD, Other (See Below) Other Gastrointestinal History: Severe protein-calorie malnutrition Genitourinary History: Reports: Retention, Urinary, UTI, Recurrent Other Genitourinary History: Neurogenic bladder has a supra pubic catheter with leg bag Musculoskeletal History: Reports: Other (See Below) Other Musculoskeletal History: Generalized muscle weakness; cerebral palsy Neurological History: Reports: Cerebral Palsy, Other (See Below) 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 Psychiatric History: Reports: Developmental Delay, Other (See Below) Other Psychiatric History: sleep disorder Endocrine/Metabolic History: Reports: Hypomagnesemia Hematologic History: Reports: Anemia, Idiopathic Thrombocytopenia - Past Surgical History Head Surgeries/Procedures: Reports: None GI Surgical History: Reports: Other (See Below) Other GI Surgeries/Procedures: g tube for tube feeding Male Surgical History: Reports: Suprapubic Catheter Placement Social & Family History - Family History Family Medical History: No Pertinent Family History - Caffeine Use Caffeine Use: Reports: None H&P Review of Systems - Review of Systems: Review Of Systems: See Below General: Reports: ROS unobtainable Exam - Exam Exam: See Below - Vital Signs Vital Signs: Last Vital Signs Temp 96.4 F L 06/06/20 15:00 Pulse 69 06/06/20 15:00 Resp 12 06/06/20 15:00 BP 88/55 L 06/06/20 15:00 Pulse Ox 98 06/06/20 15:00 Weight: 99 lb - Exam HEENT: Conjunctiva Clear, Mucosa Moist & [place], Normal Nasal Septum, Posterior Pharynx Clear, Pupils Equal Neck: Supple, Trachea Midline, +2 Carotid Pulse wo Bruit Lungs: Clear to Auscultation, Normal Respiratory Effort Cardiovascular: Regular Rate, Regular Rhythm, Normal S1, Normal S2. No: Sys tolic Murmur, Diastolic Murmur GI/Abdominal Exam: Soft, Non-Tender, No Organomegaly, No Distention Back Exam: Normal Inspection Extremities: Non-Tender, No Pedal Edema Skin: Warm, Dry, Intact - Patient Data Lab Results Last 24 hrs: Laboratory Results - last 24 hr 06/06/20 06/06/20 06/06/20 Range/Units 11:32 11:32 11:32 WBC 1.0 L (4.5-11.0) K/uL RBC 3.81 L (4.30-5.90) M/uL Hgb 10.2 L (12.0-15.0) g/dL Hct 32.3 L (40.0-54.0) % MCV 85 (80-98) fL MCH 27 (27-31) pg MCHC 32 (32-36) % Plt Count 34 L (150-400) K/uL Sodium 132 L (140-148) mmol/L Potassium 3.8 (3.6-5.2) mmol/L Chloride 96 L (100-108) mmol/L Carbon Dioxide 31 (21-32) mmol/L Anion Gap 8.8 (5.0-14.0) mmol/L BUN 36 H (7-18) mg/dL Creatinine 1.1 (0.8-1.3) mg/dL Est Cr Clr Drug Dosing 45.27 mL/min Estimated GFR (MDRD) > 60 (>60) Glucose 130 H (74-106) mg/dL Calcium 8.6 (8.5-10.1) mg/dL Phosphorus 3.6 (2.5-4.9) mg/dL Magnesium 1.5 L (1.8-2.4) mg/dL Total Bilirubin 0.2 (0.2-1.0) mg/dL AST 104 H (15-37) U/L ALT 174 H (12-78) U/L Alkaline Phosphatase 135 H (46-116) U/L Total Protein 4.6 L (6.4-8.2) g/dL Albumin 1.7 L (3.4-5.0) g/dL Globulin 2.9 (2.3-3.5) g/dL Albumin/Globulin Ratio 0.6 L (1.2-2.2) Urine Color (YELLOW) Urine Appearance (CLEAR) Urine pH (5.0-8.0) Ur Specific [place] (1.008-1.030) Urine Protein (NEGATIVE) mg/dL Urine Glucose (UA) (NEGATIVE) mg/dL Urine Ketones (NEGATIVE) mg/dL Urine Occult Blood (NEGATIVE) Urine Nitrite (NEGATIVE) Urine Bilirubin (NEGATIVE) Urine Urobilinogen (0.2-1.0) EU/dL Ur Leukocyte Esterase (NEGATIVE) Urine RBC (0-5) Urine WBC (0-5) Ur Epithelial Cells Amorphous Sediment Urine Bacteria Urine Mucus 06/06/20 Range/Units 11:46 WBC (4.5-11.0) K/uL RBC (4.30-5.90) M/uL Hgb (12.0-15.0) g/dL Hct (40.0-54.0) % MCV (80-98) fL MCH (27-31) pg MCHC (32-36) % Plt Count (150-400) K/uL Sodium (140-148) mmol/L Potassium (3.6-5.2) mmol/L Chloride (100-108) mmol/L Carbon Dioxide (21-32) mmol/L Anion Gap (5.0-14.0) mmol/L BUN (7-18) mg/dL Creatinine (0.8-1.3) mg/dL Est Cr Clr Drug Dosing mL/min Estimated GFR (MDRD) (>60) Glucose (74-106) mg/dL Calcium (8.5-10.1) mg/dL Phosphorus (2.5-4.9) mg/dL Magnesium (1.8-2.4) mg/dL Total Bilirubin (0.2-1.0) mg/dL AST (15-37) U/L ALT (12-78) U/L Alkaline Phosphatase (46-116) U/L Total Protein (6.4-8.2) g/dL Albumin (3.4-5.0) g/dL Globulin (2.3-3.5) g/dL Albumin/Globulin Ratio (1.2-2.2) Urine Color Yellow (YELLOW) Urine Appearance Clear (CLEAR) Urine pH 7.5 (5.0-8.0) Ur Specific [place] 1.015 (1.008-1.030) Urine Protein Negative (NEGATIVE) mg/dL Urine Glucose (UA) Negative (NEGATIVE) mg/dL Urine Ketones Negative (NEGATIVE) mg/dL Urine Occult Blood Negative (NEGATIVE) Urine Nitrite Negative (NEGATIVE) Urine Bilirubin Negative (NEGATIVE) Urine Urobilinogen 0.2 (0.2-1.0) EU/dL Ur Leukocyte Esterase Moderate H (NEGATIVE) Urine RBC Not seen (0-5) Urine WBC 0-5 (0-5) Ur Epithelial Cells Not seen Amorphous Sediment Many Urine Bacteria Rare Urine Mucus Not seen Result Diagrams: 06/06/20 11:32 06/06/20 11:32 Olaf Results Last 24 hrs: Microbiology 04/13/21 08:15 Clostridioides difficile Toxin Assay - Final Stool / Feces Clostridioides difficile (PCR) - Final 06/06/20 08:15 Stool for WBCs - Final Stool / Feces NO WBC SEEN REFERENCE RANGE: NO WBC SEEN Sepsis Event Note - Evaluation Sepsis Screening Result: Severe Sepsis Risk - Focused Exam Vital Signs: Vital Signs Temp Pulse Resp BP Pulse Ox 06/06/20 15:00 96.4 F L 69 12 88/55 L 98 06/06/20 13:15 96.4 F L 47 L 10 L 72/45 L 99 06/06/20 13:00 47 L 12 82/52 L 100 06/06/20 12:45 94.4 F L 47 L 12 74/45 L 98 06/06/20 12:30 94.4 F L 50 L 14 80/44 L 99 06/06/20 11:38 53 L 16 91/51 L 06/06/20 10:51 43 L 16 76/38 L 06/06/20 09:26 41 L 16 83/35 L 06/06/20 09:05 42 L 16 77/32 L 06/06/20 08:51 43 L 16 57/37 L 98 06/06/20 08:45 38 L 16 53/30 L 99 06/06/20 08:41 39 L 16 54/29 L 99 06/06/20 08:36 38 L 14 48/25 L 98 06/06/20 08:30 40 L 14 47/24 L 98 06/06/20 08:25 40 L 14 65/35 L 98 06/06/20 08:20 42 L 14 50/28 L 100 06/06/20 08:15 42 L 16 52/27 L 99 06/06/20 08:10 41 L 16 56/28 L 98 06/06/20 07:12 48 L 18 86/42 L 92 L *Q Meaningful Use (ADM) - VTE Risk Assess *Q Each Risk Factor Represents 1 Point: None Total Score 1 Point Risk Factors: 0 Each Risk Factor Represents 2 Points: None Total Score 2 Point Risk Factors: 0 Each Risk Factor Represents 3 Points: None Total Score 3 Point Risk Factors: 0 Each Risk Factor Represents 5 Points: None Total Score 5 Point Risk Factors: 0 Venous Thromboembolism Risk Factor Score *Q: 0 Consult PN Assessment/Plan Procedures: Procedures CHANGE OF BLADDER TUBE (05/26/19) CT ABD & PELV W/CONTRAST (05/19/20) CT THORAX DX C- (11/02/19) DRAIN BL W/CATH INSERTION (03/11/20) EMERGENCY DEPT VISIT (04/15/20) EMERGENCY DEPT VISIT (09/01/19) EMERGENCY DEPT VISIT (05/26/19) EMERGENCY DEPT VISIT (05/26/19) EMERGENCY DEPT VISIT (04/21/19) INSERT TEMP BLADDER CATH (01/30/20) MICROBE SUSCEPTIBLE OLAF (03/11/20) OFFICE O/P EST LOW 20-29 MIN (04/22/19) RPLC GTUBE NO REVJ TRC (04/21/19) RPLC GTUBE REVJ GSTRST TRC (04/22/19) URINALYSIS AUTO W/SCOPE (04/15/20) URINE BACTERIA CULTURE (03/11/20) URINE CULTURE/COLONY COUNT (03/11/20) US URINE CAPACITY MEASURE (05/26/19) Problem List Initiated/Reviewed/Updated: Yes My Orders Last 24 Hours: My Active Orders 06/06/20 16:54 Chest wo Cont [CT] Urgent 06/07/20 05:00 CBC WITH AUTO DIFF [HEME] Timed COMPREHENSIVE METABOLIC PN,CMP [CHEM] Timed HEMATOPATH CONSULTATION, SMEAR Routine Plan: ASSESSMENT AND RECOMMENDATIONS RIGHT COLON MASS-noted on CT scan of the abdomen as well as barium enema. Likely represents underlying malignancy. -Defer surgery until other medical issues have been evaluated PANCYTOPENIA-laboratory studies obtained this morning show a platelet count of 34,000 and a white blood cell count of 1000. Hemoglobin level of 10.2. Review of labs over the past several months show a slow decline in platelet count as well as white blood cell count. -Repeat CBC with differential in a.m. -Peripheral smear -Will require outpatient hematology consult and probable bone marrow biopsy POOR NUTRITIONAL STATE-he is experienced progressive weight loss over the past few months, despite tube feedings. Current albumin level very low at 1.7 -Calories through tube feeding have been increased recently -Continue to monitor closely C. DIFFICILE COLITIS-history of recurrent infections -Fidaxamicin twice daily TRANSAMINITIS-no evidence of liver lesions seen on recent CT scan of the abdomen. Possibly secondary to current malnutrition -Continue to monitor CEREBRAL PALSY-with congenital cognitive and physical impairment Requesting Provider: CHRISTI Date Consult Requested: 06/06/20 Reason for Consult: Medical evaluation prior to surgery Patient History Reviewed: Yes Notified Requestor: Yes
--- NOTE | 2020-06-06 18:47 | CRLCT ---
INDICATION: Follow up of irregular pleural-based opacity in the left lower lobe superior segment. TECHNIQUE: Volumetric helical scanning of the thorax was performed without IV contrast material. Coronal and sagittal reconstructions were obtained. COMPARISON: Chest CT of 11/02/2019. FINDINGS: The pleural-based, plate-like left lower lobe superior segment opacity, today demonstrated on images 35-42 of series 4 is not appreciably changed and is felt represent scarring. Scarring in the posterior right lower lobe base is again demonstrated as well. A new wedge-shaped ground-glass infiltrate in the posterior left lower lobe base is demonstrated on images 59-63. A new 6 mm ground-glass nodular density is demonstrated in the lingula on image 44. No airway abnormality or pleural effusion is demonstrated. No hilar or mediastinal lymphadenopathy is evident. Dense contrast material is noted in the colon. IMPRESSION: 1. New wedge-shaped ground-glass infiltrate in the posterior left lower lobe base and new 6 mm ground-glass nodular density in the lingula. A three-month follow up is suggested. 2. Stable scarring in the left lower lobe superior segment and posterior right lower lobe base. Please note that all CT scans at this facility use dose modulation, iterative reconstruction, and/or weight-based dosing when appropriate to reduce radiation dose to as low as reasonably achievable. Dictated by Chandana Davalos MD @ Jun 06 2020 6:36PM Signed by Dr. Chandana Davalos @ Jun 06 2020 6:46PM
[2020-06-06] MEDS: Melatonin 3 MG Tab GTUBE SCH (20:41)
[2020-06-06] MEDS: Famotidine 20 MG Tab GTUBE SCH (20:41)
[2020-06-06] MEDS: Montelukast 10 MG Tab GTUBE SCH (20:41)
[2020-06-07] MEDS: Dextrose 5%-Lactated Ringers 1,000 ML IV SCH ×3 (00:56→20:33)
[2020-06-07] MEDS ORDERED: Polyethylene Glycol 3350 Powder 119 GM Bottle PO SCH (08:00)
[2020-06-07] MEDS: Escitalopram 10 MG Tab GTUBE SCH (09:02)
[2020-06-07] MEDS: Famotidine 20 MG Tab GTUBE SCH ×2 (09:02→20:03)
[2020-06-07] MEDS: Fidaxomicin 200 MG Tab GTUBE SCH ×2 (09:02→20:03)
[2020-06-07] MEDS: Magnesium Sulfate/Water 2 GM/50 ML BAG IV SCH ×3 (09:03→20:02)
--- NOTE | 2020-06-07 13:12 | PCM.CONSN ---
- General Info Date of Service: 06/07/20 Subjective Update: Mr. Trinh is remained fairly stable over the last 24 hours. Blood pressure and heart rate do trend low but this is fairly normal for him and consistent with previous levels obtained at home. Oxygenation has been adequate and laboratory studies remain abnormal but stable from the levels yesterday. He is unable to provide meaningful history concerning symptoms or review of systems because of his congenital cognitive impairment. - Patient Data Vitals - Most Recent: Last Vital Signs Temp 96.9 F 06/07/20 11:00 Pulse 67 06/07/20 05:00 Resp 13 06/07/20 11:00 BP 88/51 L 06/07/20 11:00 Pulse Ox 98 06/07/20 11:00 Weight - Most Recent: 99 lb 0.012 oz I&O - Last 24 Hours: Intake & Output 06/06/20 06/07/20 06/07/20 22:59 06:59 14:59 Intake Total 480 1693 437 Output Total 1350 1500 Balance -870 193 437 Lab Results Last 24 Hours: Laboratory Results - last 24 hr 06/06/20 06/07/20 06/07/20 Range/Units 11:32 04:06 04:06 WBC 1.4 L (4.5-11.0) K/uL RBC 3.83 L (4.30-5.90) M/uL Hgb 10.5 L (12.0-15.0) g/dL Hct 32.0 L (40.0-54.0) % MCV 84 (80-98) fL MCH 27 (27-31) pg MCHC 33 (32-36) % Plt Count 45 L (150-400) K/uL Neut % (Auto) 54 (36-66) % Lymph % (Auto) 38 (24-44) % [place] % (Auto) 8 H (2-6) % Eos % (Auto) 0 L (2-4) % Baso % (Auto) 0 (0-1) % Sodium 145 (140-148) mmol/L Potassium 3.6 (3.6-5.2) mmol/L Chloride 106 (100-108) mmol/L Carbon Dioxide 28 (21-32) mmol/L Anion Gap 10.8 (5.0-14.0) mmol/L BUN 29 H (7-18) mg/dL Creatinine 1.0 (0.8-1.3) mg/dL Est Cr Clr Drug Dosing 64.86 mL/min Estimated GFR (MDRD) > 60 (>60) Glucose 52 L (74-106) mg/dL Calcium 8.1 L (8.5-10.1) mg/dL Total Bilirubin 0.2 (0.2-1.0) mg/dL AST 90 H (15-37) U/L ALT 163 H (12-78) U/L Alkaline Phosphatase 141 H (46-116) U/L Total Protein 4.7 L (6.4-8.2) g/dL Albumin 1.7 L (3.4-5.0) g/dL Globulin 3.0 (2.3-3.5) g/dL Albumin/Globulin Ratio 0.6 L (1.2-2.2) Carcinoembryonic Ag 6.5 H (0.0-4.7) ng/mL Olaf Results Last 24 Hours: Microbiology 06/06/20 08:15 Stool Culture - Preliminary Stool / Feces Shiga Toxin I - Final NEGATIVE FOR SHIGA TOXIN 1 Shiga Toxin II - Final NEGATIVE FOR SHIGA TOXIN 2 REFERENCE RANGE: NEGATIVE 06/06/20 11:46 Urine Culture - Preliminary Urine, Suprapubic Bladder Asp 06/06/20 08:15 Clostridioides difficile Toxin Assay - Final Stool / Feces Clostridioides difficile (PCR) - Final 06/06/20 08:15 Stool for WBCs - Final Stool / Feces NO WBC SEEN REFERENCE RANGE: NO WBC SEEN Med Orders - Current: Current Medications Escitalopram Oxalate (Escitalopram 10 Mg Tab) 10 mg GTUBE DAILY [facility] Last Admin: 06/07/20 09:02 Dose: 10 mg Documented by: Famotidine (Famotidine 20 Mg Tab) 20 mg GTUBE BID [facility] Last Admin: 06/07/20 09:02 Dose: 20 mg Documented by: Fidaxomicin (Fidaxomicin 200 Mg Tab) 200 mg GTUBE BID [facility] Last Admin: 06/07/20 09:02 Dose: 200 mg Documented by: Dextrose/Lactated Ringer's (Dextrose 5%-Lactated Ringers) 1,000 mls @ 100 mls/hr IV ASDIRECTED [facility] Last Admin: 06/07/20 10:26 Dose: 100 mls/hr Documented by: Magnesium Sulfate (Magnesium Sulfate In Water 2 Gm/50 Ml) 2 gm in 50 mls @ 25 mls/hr IV Q6H [facility] Stop: 06/10/20 04:59 Last Admin: 06/07/20 09:03 Dose: 25 mls/hr Documented by: Melatonin (Melatonin 3 Mg Tab) 9 mg GTUBE BEDTIME [facility] Last Admin: 06/06/20 20:41 Dose: 9 mg Documented by: Montelukast Sodium (Montelukast 10 Mg Tab) 10 mg GTUBE BEDTIME [facility] Last Admin: 06/06/20 20:41 Dose: 10 mg Documented by: Discontinued Medications Barium Sulfate (Barium Sulfate 105% W/V Susp 1,900 Ml Bottle) 1,900 ml PO ONETIME ONE Stop: 06/06/20 09:31 Last Admin: 06/07/20 08:38 Dose: Not Given Documented by: Fentanyl (Fentanyl 100 Mcg/2 Ml Sdv) Confirm Administered Dose 100 mcg .ROUTE .STK-MED ONE Stop: 06/06/20 07:05 Lactated Ringer's (Ringers, Lactated) 500 mls @ 500 mls/hr IV BOLUS ONE Stop: 06/06/20 09:28 Last Admin: 06/06/20 08:43 Dose: 500 mls/hr Documented by: Midazolam HCl (Midazolam 1 Mg/Ml 2 Ml Sdv) Confirm Administered Dose 2 mg .ROUTE .STK-MED ONE Stop: 06/06/20 07:05 Polyethylene Glycol (Polyethylene Glycol 3350 Powder 119 Gm Bottle) 119 gm PO BID@0800,1400 [facility] Stop: 06/07/20 14:01 Last Admin: 06/07/20 10:37 Dose: Not Given Documented by: Propofol (Propofol 200 Mg/20 Ml Sdv) Confirm Administered Dose 200 mg .ROUTE .STK-MED ONE Stop: 06/06/20 07:05 - Exam General: Alert, Mild Distress Lungs: Clear to Auscultation, Normal Respiratory Effort Cardiovascular: Regular Rate, Regular Rhythm, No Murmurs GI/Abdominal Exam: Soft, Non-Tender, No Organomegaly, No Distention Extremities: Non-Tender, No Pedal Edema Sepsis Event Note - Evaluation Sepsis Screening Result: Severe Sepsis Risk - Focused Exam Vital Signs: Vital Signs Temp Pulse Resp BP Pulse Ox 06/07/20 11:00 96.9 F 13 88/51 L 98 06/07/20 09:00 96.7 F L 11 L 81/43 L 98 06/07/20 07:00 95.9 F L 11 L 82/46 L 99 06/07/20 05:00 67 11 L 93/48 L 98 06/07/20 03:00 54 L 10 L 80/48 L Consult PN Assessment/Plan Procedures: Procedures CHANGE OF BLADDER TUBE (05/26/19) CT ABD & PELV W/CONTRAST (05/19/20) CT THORAX DX C- (11/02/19) DRAIN BL W/CATH INSERTION (03/11/20) EMERGENCY DEPT VISIT (04/15/20) EMERGENCY DEPT VISIT (09/01/19) EMERGENCY DEPT VISIT (05/26/19) EMERGENCY DEPT VISIT (05/26/19) EMERGENCY DEPT VISIT (04/21/19) INSERT TEMP BLADDER CATH (01/30/20) MICROBE SUSCEPTIBLE OLAF (03/11/20) OFFICE O/P EST LOW 20-29 MIN (04/22/19) RPLC GTUBE NO REVJ TRC (04/21/19) RPLC GTUBE REVJ GSTRST TRC (04/22/19) URINALYSIS AUTO W/SCOPE (04/15/20) URINE BACTERIA CULTURE (03/11/20) URINE CULTURE/COLONY COUNT (03/11/20) US URINE CAPACITY MEASURE (05/26/19) Problem List Initiated/Reviewed/Updated: Yes My Orders Last 24 Hours: My Active Orders 06/07/20 04:06 HEMATOPATH CONSULTATION, SMEAR Routine 06/08/20 05:00 CBC WITH AUTO DIFF [HEME] Timed COMPREHENSIVE METABOLIC PN,CMP [CHEM] Timed Plan: ASSESSMENT AND RECOMMENDATIONS RIGHT COLON MASS-noted on CT scan of the abdomen as well as barium enema. Likely represents underlying malignancy. -Defer surgery until other medical issues have been evaluated PANCYTOPENIA-laboratory studies obtained this morning show a platelet count of 34,000 and a white blood cell count of 1000. Hemoglobin level of 10.2. Review of labs over the past several months show a slow decline in platelet count as well as white blood cell count. -Repeat CBC with differential in a.m. -Peripheral smear -Will require outpatient hematology consult and probable bone marrow biopsy POOR NUTRITIONAL STATE-he is experienced progressive weight loss over the past few months, despite tube feedings. Current albumin level very low at 1.7 -Calories through tube feeding have been increased recently -Continue to monitor closely PULMONARY INFILTRATE AND NODULE NOTED ON CT SCAN -Follow-up CT of the chest in 3 months C. DIFFICILE COLITIS-history of recurrent infections -Fidaxamicin twice daily -Outpatient consult with gastroenterology TRANSAMINITIS-no evidence of liver lesions seen on recent CT scan of the abdomen. Possibly secondary to current malnutrition -Continue to monitor -Outpatient consult with gastroenterology CEREBRAL PALSY-with congenital cognitive and physical impairment
[2020-06-07] MEDS: Melatonin 3 MG Tab GTUBE SCH (20:03)
[2020-06-07] MEDS: Montelukast 10 MG Tab GTUBE SCH (20:04)
[2020-06-08] MEDS: Magnesium Sulfate/Water 2 GM/50 ML BAG IV SCH ×3 (02:13→15:39)
[2020-06-08] MEDS: Dextrose 5%-Lactated Ringers 1,000 ML IV SCH (06:19)
[2020-06-08] MEDS ORDERED: SODIUM CHLORIDE 0.9% NERVRT SCH ×4 (07:30)
[2020-06-08] MEDS ORDERED: cefOXitin 2 GM in Sodium Chloride 0.9% 50 ML IV ONE (07:30)
[2020-06-08] MEDS ORDERED: ROPIVACAINE NERVRT SCH ×4 (07:30)
[2020-06-08] MEDS ORDERED: EPINEPHRINE NERVRT SCH ×4 (07:30)
[2020-06-08] MEDS ORDERED: DEXAMETHASONE NERVRT SCH ×4 (07:30)
[2020-06-08] MEDS: Potassium Phos in 0.9 % NaCl 250 ML IV SCH ×3 (07:51→14:01)
[2020-06-08] MEDS: Famotidine 20 MG Tab GTUBE SCH (08:06)
[2020-06-08] MEDS: Escitalopram 10 MG Tab GTUBE SCH (08:06)
[2020-06-08] MEDS: Fidaxomicin 200 MG Tab GTUBE SCH (08:06)
[2020-06-08] MEDS ORDERED: Pantoprazole 40 MG Tab.CR PO SCH (09:00)
--- NOTE | 2020-06-08 12:35 | PCM.DCSUM1 ---
Discharge Summary - Hospital Course Brief History: Mr. 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 Burns with a right colon mass and plan to proceed with right colon resection. - Discharge Data Discharge Date: 06/08/20 Discharge Disposition: Home, Self-Care 01 Condition: Fair - Referral to Home Health Primary Care Physician: Shaun Hayden MD - Discharge Diagnosis/Problem(s) (1) Pancytopenia SNOMED Code(s): 963299282 ICD Code: D61.818 - OTHER PANCYTOPENIA Status: Acute Current Visit: Yes (2) Clostridium difficile colitis SNOMED Code(s): 548409138 ICD Code: A04.72 - ENTEROCOLITIS D/T CLOSTRIDIUM DIFFICILE, NOT SPCF RECUR Status: Acute Current Visit: Yes (3) Transaminitis SNOMED Code(s): 397904033, 023581151 ICD Code: R74.01 - ELEVATION OF LEVELS OF LIVER TRANSAMINASE LEVELS Status: Acute Current Visit: Yes (4) Cerebral palsy SNOMED Code(s): 561760908 ICD Code: G80.9 - CEREBRAL PALSY, UNSPECIFIED Status: Chronic Current Visit: No (5) Nodule of left lung SNOMED Code(s): 196798862 ICD Code: R91.1 - SOLITARY PULMONARY NODULE Status: Acute Current Visit: Yes (6) Mass of colon SNOMED Code(s): 104625622 ICD Code: K63.89 - OTHER SPECIFIED DISEASES OF INTESTINE Status: Acute Current Visit: Yes - Patient Summary/Data Consults: Consultations 06/07/20 08:21 Consult to Dietary [Consult to Blender/Braze Applicator] [CONS] Routine Comment: Physician Instructions: Quantity: Special Instructions: Nutritional needs-possibly needs "overfeeding" for some time Hospital Course: Mr. Trinh is a 35-year-old gentleman who was admitted through the outpatient area with a right colon mass by Dr. Burns. Mr. 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 He currently resides in a retirement. He has a feeding tube because of episodes of recurrent aspiration pneumonia with respiratory compromise. He also has a suprapubic catheter because of neurogenic bladder. Over the past 3 months is noted to have been experiencing progressive weight loss and also found to have elevated liver studies. CT scan of the abdomen was obtained and showed evidence of a right colon mass. He was scheduled for colonoscopy today, unfortunately colonoscopy could not be completed because of tortuous bowel. Barium enema was performed which also showed evidence of a right colon mass consistent with that seen on the CT scan. He has been admitted with planned surgery in 2 days time for right colon resection. Mr. Trinh is unable to provide meaningful information concerning symptoms or review of systems because of his cognitive impairment. Has a history of recurrent C. difficile infections, previously treated with vancomycin and one course of Fidaxomicin. C. difficile test was obtained this morning and found to be positive. Initially on admission he was given IV fluids for hydration, tube feedings were resumed and IV fluids were discontinued. He was started on Fidaxamicin for management of his recurrent C. difficile infection. Laboratory studies were obtained and showed evidence of pancytopenia; mild anemia with significant leukopenia and thrombocytopenia. Liver enzymes were also noted to be elevated consistent where they have been recently. Decision was made to hold on surgery until he could undergo further evaluation of his pancytopenia. Medications were reviewed and Pepcid was identified as a potential cause of pancytopenia, this was discontinued and he was started on Protonix as alternative therapy. He also had a history of possible pleural-based mass or abnormality in the right chest noted on previous CT scan of the chest. CT scan of the chest was repeated area of concern appeared to represent some scarring. There was a new area with groundglass i nfiltrate and nodule, recommendation is for follow-up CT scan of the chest again in 3 months. He was noted to have significant malnutrition with an albumin level of 1.8. Recent history of's progressive weight loss. Tube feedings recently been changed to provide increased calories. In light of his significant underlying medical problems decision was made to defer surgery until some of these other issues can be managed and further evaluated. Outpatient consult with hematology will be scheduled and he will likely require bone marrow biopsy. Outpatient consult with gastroenterology will also be scheduled for further evaluation of liver enzyme elevation and recurrent C. difficile infections. Follow-up appointment will be scheduled with his primary care provider within 1 week. Activity will be as tolerated and he will resume his usual tube feedings with recent change to increase caloric intake. - Patient Instructions Diet, Other: Resume tube feedings as previously ordered Activity: As Tolerated Other/Special Instructions: Please schedule oncology/hematology consult for further evaluation of pancytopenia. Please schedule gastroenterology consult for evaluation and management of transaminitis and recurrent C. difficile colitis. Please schedule follow-up appointment with Dr. Hayden within 1 week. - Discharge Plan *PRESCRIPTION DRUG MONITORING PROGRAM REVIEWED*: Not Applicable *COPY OF PRESCRIPTION DRUG MONITORING REPORT IN PATIENT THU: Not Applicable Prescriptions/Med Rec: Fidaxomicin [Dificid] 200 mg GTUBE BID #28 tablet Pantoprazole [ProTONIX] 40 mg PO ACBREAKFAST #30 tab.cr Home Medications: Home Meds Melatonin 5 mg PO BEDTIME 04/21/19 [History] Montelukast [Singulair] 10 mg GTUBE DAILY 04/21/19 [History] Multivits w-Min/Ferrous Gluc [Certavite-Antioxidant Liquid] 15 ml GTUBE DAILY 04/21/19 [History] Lactose-Reduced Food/Fiber [Jevity 1.5 Osvaldo Liquid] 8 oz GTUBE QID 06/05/20 [History] Fidaxomicin [Dificid] 200 mg GTUBE BID #28 tablet 06/08/20 [Rx] Pantoprazole [ProTONIX] 40 mg PO ACBREAKFAST #30 tab.cr 06/08/20 [Rx] - Discharge Summary/Plan Comment DC Time >30 min.: No - Patient Data Vitals - Most Recent: Last Vital Signs Temp 96.2 F L 06/08/20 11:00 Pulse 47 L 06/08/20 11:00 Resp 10 L 06/08/20 11:00 BP 75/38 L 06/08/20 11:00 Pulse Ox 98 06/08/20 11:00 Weight - Most Recent: 99 lb 0.012 oz I&O - Last 24 hours: Intake & Output 06/07/20 06/08/20 06/08/20 22:59 06:59 14:59 Intake Total 1806 2283 437 Output Total 650 1000 Balance 1156 1283 437 Lab Results - Last 24 hrs: Laboratory Results - last 24 hr 06/08/20 06/08/20 Range/Units 04:20 04:20 WBC 0.8 L* (4.5-11.0) K/uL RBC 3.29 L (4.30-5.90) M/uL Hgb 8.9 L (12.0-15.0) g/dL Hct 28.2 L (40.0-54.0) % MCV 86 (80-98) fL MCH 27 (27-31) pg MCHC 32 (32-36) % Plt Count 40 L (150-400) K/uL Sodium 145 (140-148) mmol/L Potassium 3.3 L (3.6-5.2) mmol/L Chloride 108 (100-108) mmol/L Carbon Dioxide 31 (21-32) mmol/L Anion Gap 9.3 (5.0-14.0) mmol/L BUN 24 H (7-18) mg/dL Creatinine 0.9 (0.8-1.3) mg/dL Est Cr Clr Drug Dosing 72.07 mL/min Estimated GFR (MDRD) > 60 (>60) Glucose 112 H (74-106) mg/dL Calcium 7.7 L (8.5-10.1) mg/dL Phosphorus 2.5 (2.5-4.9) mg/dL Magnesium 4.1 H (1.8-2.4) mg/dL Total Bilirubin 0.1 L (0.2-1.0) mg/dL AST 76 H (15-37) U/L ALT 140 H (12-78) U/L Alkaline Phosphatase 165 H (46-116) U/L Total Protein 4.2 L (6.4-8.2) g/dL Albumin 1.6 L (3.4-5.0) g/dL Globulin 2.6 (2.3-3.5) g/dL Albumin/Globulin Ratio 0.6 L (1.2-2.2) ZAIRA Results - Last 24 hrs: Microbiology 06/06/20 11:46 Urine Culture - Preliminary Urine, Suprapubic Bladder Asp Pseudomonas Aeruginosa 06/06/20 08:15 Stool Culture - Preliminary Stool / Feces Proteus Mirabilis Shiga Toxin I - Final NEGATIVE FOR SHIGA TOXIN 1 Shiga Toxin II - Final NEGATIVE FOR SHIGA TOXIN 2 REFERENCE RANGE: NEGATIVE Med Orders - Current: Current Medications Escitalopram Oxalate (Escitalopram 10 Mg Tab) 10 mg GTUBE DAILY [facility] Last Admin: 06/08/20 08:06 Dose: 10 mg Documented by: Fidaxomicin (Fidaxomicin 200 Mg Tab) 200 mg GTUBE BID [facility] Last Admin: 06/08/20 08:06 Dose: 200 mg Documented by: Dextrose/Lactated Ringer's (Dextrose 5%-Lactated Ringers) 1,000 mls @ 100 mls/hr IV ASDIRECTED [facility] Last Admin: 06/08/20 06:19 Dose: 100 mls/hr Documented by: Magnesium Sulfate (Magnesium Sulfate In Water 2 Gm/50 Ml) 2 gm in 50 mls @ 25 mls/hr IV Q6H [facility] Stop: 06/10/20 04:59 Last Admin: 06/08/20 08:31 Dose: 25 mls/hr Documented by: Potassium Phosphate (Potassium Phos In Ns 15 Mmol/250 Ml) 250 mls @ 85 mls/hr IV Q3H [facility] Stop: 06/08/20 19:57 Last Admin: 06/08/20 10:57 Dose: 85 mls/hr Documented by: Melatonin (Melatonin 3 Mg Tab) 9 mg GTUBE BEDTIME [facility] Last Admin: 06/07/20 20:03 Dose: 9 mg Documented by: Montelukast Sodium (Montelukast 10 Mg Tab) 10 mg GTUBE BEDTIME [facility] Last Admin: 06/07/20 20:04 Dose: 10 mg Documented by: Pantoprazole Sodium (Pantoprazole 40 Mg Tab.Cr) 40 mg PO ACBREAKFAST [facility] Last Admin: 06/08/20 08:49 Dose: Not Given Documented by: Discontinued Medications Barium Sulfate (Barium Sulfate 105% W/V Susp 1,900 Ml Bottle) 1,900 ml PO ONETIME ONE Stop: 06/06/20 09:31 Last Admin: 06/07/20 08:38 Dose: Not Given Documented by: Famotidine (Famotidine 20 Mg Tab) 20 mg GTUBE BID [facility] Last Admin: 06/08/20 08:06 Dose: 20 mg Documented by: Fentanyl (Fentanyl 100 Mcg/2 Ml Sdv) Confirm Administered Dose 100 mcg .ROUTE .STK-MED ONE Stop: 06/06/20 07:05 Lactated Ringer's (Ringers, Lactated) 500 mls @ 500 mls/hr IV BOLUS ONE Stop: 06/06/20 09:28 Last Admin: 06/06/20 08:43 Dose: 500 mls/hr Documented by: Midazolam HCl (Midazolam 1 Mg/Ml 2 Ml Sdv) Confirm Administered Dose 2 mg .ROUTE .STK-MED ONE Stop: 06/06/20 07:05 Polyethylene Glycol (Polyethylene Glycol 3350 Powder 119 Gm Bottle) 119 gm PO BID@0800,1400 [facility] Stop: 06/07/20 14:01 Last Admin: 06/07/20 10:37 Dose: Not Given Documented by: Propofol (Propofol 200 Mg/20 Ml Sdv) Confirm Administered Dose 200 mg .ROUTE .S TK-MED ONE Stop: 06/06/20 07:05 - Exam General: Reports: Alert, No Acute Distress Lungs: Reports: Clear to Auscultation, Normal Respiratory Effort Cardiovascular: Reports: Regular Rhythm, No Murmurs, Bradycardia GI/Abdominal Exam: Soft, Non-Tender, No Organomegaly, No Distention Extremities: Non-Tender, No Pedal Edema
--- NOTE | 2020-06-12 12:48 | PN ---
DATE OF SERVICE: 06/07/2020 The patient was admitted yesterday with evident colon carcinoma involving the right side. This was evident on CT scan and barium enema yesterday. Colonoscopy prep was inadequate to visualize the area. C diff was positive. We started him on fidaxomicin. The striking feature in his case is his platelet count is in the 30 to 40 range and white count is already around 1000, so the surgery at this point is going to be held. We will still clean out the bowel today and we did the barium with MiraLAX prep. We will switch him over to more of a standard tube feeding regimen. I asked Dietary to look at his feedings. He obviously needs to be somewhat "over fed" for the next period of time in order to catch up nutritionally. His magnesium was low yesterday, we will supplement that. Recheck some labs tomorrow. Otherwise, we will have Dr. Smith workup the hematologic issues. Constantino Burns MD /[id number]
--- NOTE | 2020-06-12 13:54 | PN ---
DATE OF SERVICE: 06/08/2020 The patient continued to be somewhat in limbo related to inability to contact his father who is the legal guardian and obviously has some major hematologic problem. White count this morning is 0.8 and platelet count dropped a little bit further from yesterday's 45 to 40. Otherwise, we restarted the tube feedings, he is tolerating those, and he may be discharged home waiting to get some contact with the father or have the court to sign a power-of- regulatory attorney so some decision can be made. He will need to have hematologic issues worked up first in terms of bone marrow biopsy and such if they are going to pursue aggressive treatment and he does have an almost certain colon cancer on the right side, but the hematologic issues need to be dealt with initially. Constantino Burns MD /[id number]
[2020-06-13 09:11] LABS: BANDS 1 % (Not Estab.); BASOS 0 % (Not Estab.); EOS 0 % (Not Estab.); HEMATOCRIT 32.3 % (37.5-51.0); HEMOGLOBIN 10.7 g/dL (13.0-17.7); IMMATURE CELLS Note (.); LYMPHS 47 % (Not Estab.); LYMPHS (ABSOLUTE) 0.6 x10E3/uL (0.7-3.1); MCH 28.5 pg (26.6-33.0); MCHC 33.1 g/dL (31.5-35.7); MCV 86 fL (79-97); METAMYELOCYTES 2 % (0 - 0); MONOCYTES 2 % (Not Estab.); NEUTROPHILS 48 % (Not Estab.); NEUTROPHILS (ABSOLUTE) 0.6 x10E3/uL (1.4-7.0); NRBC 3 % (0 - 0); PLATELETS 34 x10E3/uL (150-450); RBC 3.75 x10E6/uL (4.14-5.80); RDW 18.8 % (11.6-15.4); WBC 1.2 x10E3/uL (3.4-10.8)
--- NOTE | 2020-06-19 13:58 | OR ---
DATE OF PROCEDURE: 06/06/2020 SURGEON: Constantino Burns MD PREOPERATIVE DIAGNOSES: 1. History of Clostridium difficile colitis. 2. Probable right colon mass on CT scan. POSTOPERATIVE DIAGNOSES: 1. Persistent Clostridium difficile colitis. 2. Probable right colon mass. 3. Poor colon prep. OPERATIVE PROCEDURE: Flexible colonoscopy with collection of stool for culture and sensitivity and Clostridium difficile enterotoxin. SUMMARY: This is a 35-year-old male with severe cerebral palsy who is sent for followup colonoscopy. The patient was, on recent CT scan, noted to have what appeared to be a right colon mass. Has also had persistent Clostridium difficile colitis having had three antibiotic treatments but continued to have some frequent loose stools. Plan is to proceed with a flexible colonoscopy. Potential risks were reviewed with the patient's staff who at this time is the republican giving consent and potential risks including bleeding and perforation were discussed, and they wished to proceed. DETAILS OF PROCEDURE: The patient was taken to the operating room and placed in a left lateral decubitus position. IV sedation was administered, after which the initial digital rectal exam was performed, was unremarkable. Colonoscope was then passed to the level of what appeared to be roughly the mid transverse colon. Proximal could not be passed further due to quite poor colon prep with a large amount of liquid stool present. Some of this was evacuated and sent for full stool workup including follow Clostridium difficile enterotoxin assay. The area of the cecum could not be evaluated due to the poor prep and the scope was then withdrawn and the procedure then concluded. Of note, the patient underwent a subsequent barium enema. This did show findings consistent with a right colon mass seen on CT scan and also of note, the patient had a persistent positive C difficile enterotoxin. Given all this, the patient will be admitted for planned colon resection and additional treatment for the Clostridium difficile enterotoxin. Dr. Smith will be consulted regarding preoperative history and physical examination and at this point, the patient's father who is the legal guardian has been unable to be contacted but we will try contacting him in view of that the consenting republican presently has been the staff at the patient's assisted living and we will need to investigate whether more significant operation such as right colon resection would be properly consented by those staff members. Constantino Burns MD /[id number]
== END 2020-06-08 17:36 | disposition home or self-care (01) | DRG 393 ==
LOC: JP.SDS 06:34 → JP.SDSSCHI 06:34 → EDSTATUS 08:15 → JP.ICU 12:25
PROVIDERS: ADMIT Surgery; ATTEND Surgery
PROC: 0DJD8ZZ Inspection of Lower Intestinal Tract, Via Natural or Artificial Opening Endoscopic (ICD-10-PCS; principal; 2020-06-06)
DX: K63.89 Other specified diseases of intestine (principal); D61.811 Other drug-induced pancytopenia; E43 Unspecified severe protein-calorie malnutrition; A04.72 Enterocolitis due to Clostridium difficile, not specified as recurrent; J96.10 Chronic respiratory failure, unspecified whether with hypoxia or hypercapnia; K63.9 Disease of intestine, unspecified; R74.01 Elevation of levels of liver transaminase levels; G80.9 Cerebral palsy, unspecified; R91.1 Solitary pulmonary nodule; G31.84 Mild cognitive impairment of uncertain or unknown etiology; Z96.0 Presence of urogenital implants; N31.9 Neuromuscular dysfunction of bladder, unspecified; T47.0X5A Adverse effect of histamine H2-receptor blockers, initial encounter; J45.909 Unspecified asthma, uncomplicated; K59.09 Other constipation; R62.50 Unspecified lack of expected normal physiological development in childhood; E83.42 Hypomagnesemia; K21.9 Gastro-esophageal reflux disease without esophagitis; R33.9 Retention of urine, unspecified; Z87.440 Personal history of urinary (tract) infections; Z93.1 Gastrostomy status; Z87.01 Personal history of pneumonia (recurrent); Z79.899 Other long term (current) drug therapy; Z88.0 Allergy status to penicillin; Z88.1 Allergy status to other antibiotic agents; Z68.22 Body mass index [BMI] 22.0-22.9, adult
CPT/HCPCS: 36415; 71250; 74270; 74270-26; 80053; 81001; 82378; 83735; 84100; 85025; 85027; 85060; 87046; 87077; 87086; 87088; 87177; 87186; 87209; 87493; 87899; 89055; A9270-GY; J2250; J2704; J3010; J3475; J7120; J7121

== ENCOUNTER 2020-07-06 20:51 | Emergency (ER) | payer MEDICARE, MEDICAID ==
--- NOTE | 2020-07-06 21:37 | EDM.PDOC ---
ED HPI GENERAL MEDICAL PROBLEM - General Chief Complaint: General Stated Complaint: LATHARGIC Time Seen by Provider: 07/06/20 21:11 Source of Information: Reports: Other (intermediate caregiver) History Limitations: Reports: Other (Patient is nonverbal due to cerebral palsy) - History of Present Illness INITIAL COMMENTS - FREE TEXT/NARRATIVE: Jerry is a 35-year-old male presenting to the ED with his caregiver for evaluation of increased lethargy and difficulty breathing. The patient has a history significant for cerebral palsy and recently had increased spasticity. He was seen by his primary care provider and started on baclofen. He received 2 doses of baclofen 1 on June 28 and the second on June 29 which both doses resulted in him being extremely lethargic and sleeping all day. They discontinued the baclofen and yesterday the patient was starting to rebound doing his normal activity. Today he again has been sleeping all day. He is currently being worked up for possible leukemia due to significant leukocytosis. He was also found to have a mass in the colon (intraluminal circumferential mass right colon worrisome for a neoplasm) and 2 suspicious lesions in the lungs 1 on the right and one in the left. He is followed by oncology. In review of his [facility] chart, he is DNR/DNI. He does have a history of respiratory failure with hypoxia and hypercapnia. He has severe protein-calorie deficiency. He does have a PEG tube for feeding. He is currently being worked up for pancytopenia and is scheduled to undergo a bone marrow aspirate. Patient was recently h ospitalized in the ICU for a flare of C. difficile colitis. Patient has not had a fever per se but he has been warmer than typical according to the caregiver. - Related Data Allergies Allergy/AdvReac Type Severity Reaction Status Date / Time amoxicillin Allergy Rash Verified 07/06/20 21:11 Penicillins Allergy Rash Verified 07/06/20 21:11 Home Meds: Home Meds Melatonin 5 mg PO BEDTIME 04/21/19 [History] Montelukast [Singulair] 10 mg GTUBE DAILY 04/21/19 [History] Multivits w-Min/Ferrous Gluc [Certavite-Antioxidant Liquid] 15 ml GTUBE DAILY 04/21/19 [History] Lactose-Reduced Food/Fiber [Jevity 1.5 Osvaldo Liquid] 8 oz GTUBE QID 06/05/20 [History] Fidaxomicin [Dificid] 200 mg GTUBE BID #28 tablet 06/08/20 [Rx] Pantoprazole [ProTONIX] 40 mg PO ACBREAKFAST #30 tab.cr 06/08/20 [Rx] Past Medical History Respiratory History: Reports: Asthma, Other (See Below) Other Respiratory History: Chronic respiratory Failure Gastrointestinal History: Reports: Chronic Constipation, GERD, Other (See Below) Other Gastrointestinal History: Severe protein-calorie malnutrition Genitourinary History: Reports: Retention, Urinary, UTI, Recurrent Other Genitourinary History: Neurogenic bladder has a supra pubic catheter with leg bag Musculoskeletal History: Reports: Other (See Below) Other Musculoskeletal History: Generalized muscle weakness; cerebral palsy Neurological History: Reports: Cerebral Palsy, Other (See Below) 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 Psychiatric History: Reports: Developmental Delay, Other (See Below) Other Psychiatric History: sleep disorder Endocrine/Metabolic History: Reports: Hypomagnesemia Hematologic History: Reports: Anemia, Idiopathic Thrombocytopenia - Past Surgical History Head Surgeries/Procedures: Reports: None GI Surgical History: Reports: Other (See Below) Other GI Surgeries/Procedures: g tube for tube feeding Male Surgical History: Reports: Suprapubic Catheter Placement Social & Family History - Family History Family Medical History: No Pertinent Family History - Tobacco Use Tobacco Use Status *Q: Never Tobacco User - Caffeine Use Caffeine Use: Reports: None - Recreational Drug Use Recreational Drug Use: No ED ROS GENERAL - Review of Systems Review Of Systems: Unable To Obtain Reason Not Obtained: Patient is nonverbal and unable to answer questions. Caregiver r Respiratory: Reports: Shortness of Breath Cardiovascular: Reports: No Symptoms GI/Abdominal: Reports: Other (Right colonic mass) : Reports: No Symptoms Musculoskeletal: Reports: Other (Contractures due to cerebral palsy) Skin: Reports: No Symptoms Neurological: Reports: Other (Lethargic and sleeping more) ED EXAM, GENERAL - Physical Exam Exam: See Below Exam Limited By: Physical Impairment General Appearance: Lethargic Throat/Mouth: Normal Oropharynx Head: Atraumatic Neck: Normal Inspection Respiratory/Chest: No Respiratory Distress, No Accessory Muscle Use, Crackles (Right base), Rhonchi (Right base), Other (Bronchial air sounds in the right base) Cardiovascular: Normal Peripheral Pulses, Regular Rate, Rhythm, No Murmur Peripheral Pulses: 2+: Radial (L), Radial (R), Posterior Tibial (L), Posterior Tibial (R) GI/Abdominal: Normal Bowel Sounds, Soft, Non-Tender Extremities: Normal Inspection, No Pedal Edema, Other (Chronic contractures) Neurological: Inattentive, Slow to Respond Skin Exam: Warm, Dry Course - Vital Signs Last Recorded V/S: Last Vital Signs Temp 36.2 C 07/06/20 21:03 Pulse 80 07/06/20 23:02 Resp 16 07/06/20 21:15 BP 96/59 L 07/06/20 23:02 Pulse Ox 91 L 07/06/20 23:02 - Orders/Labs/Meds Orders: Active Orders 24 hr Category Date Time Status Chest 1V Frontal [CR] Stat Exams 07/06/20 21:19 Taken CULTURE BLOOD [BC] Urgent Lab 07/06/20 21:25 Received CULTURE BLOOD [BC] Urgent Lab 07/06/20 21:25 Received Blood Culture x2 Reflex Set [OM.PC] Urgent Oth 07/06/20 21:19 Ordered Isolation [COMM] Stat Oth 07/06/20 21:20 Ordered Labs: Laboratory Tests 07/06/20 07/06/20 07/06/20 Range/Units 21:19 21:25 21:25 WBC 1.4 L (4.5-11.0) K/uL RBC 3.19 L (4.30-5.90) M/uL Hgb 9.2 L (12.0-15.0) g/dL Hct 27.4 L (40.0-54.0) % MCV 86 (80-98) fL MCH 29 (27-31) pg MCHC 34 (32-36) % Plt Count 25 L* (150-400) K/uL Neut % (Auto) 73 H (36-66) % Lymph % (Auto) 21 L (24-44) % Yell % (Auto) 6 (2-6) % Eos % (Auto) 0 L (2-4) % Baso % (Auto) 0 (0-1) % Sodium 130 L (140-148) mmol/L Potassium 4.8 (3.6-5.2) mmol/L Chloride 92 L (100-108) mmol/L Carbon Dioxide 31 (21-32) mmol/L Anion Gap 11.8 (5.0-14.0) mmol/L BUN 36 H (7-18) mg/dL Creatinine 1.0 (0.8-1.3) mg/dL Est Cr Clr Drug Dosing 51.10 mL/min Estimated GFR (MDRD) > 60 (>60) Glucose 63 L (74-106) mg/dL Lactic Acid (0.4-2.0) mmol/L Calcium 8.4 L (8.5-10.1) mg/dL Total Bilirubin 0.5 D (0.2-1.0) mg/dL AST 121 H (15-37) U/L ALT 196 H (12-78) U/L Alkaline Phosphatase 200 H (46-116) U/L C-Reactive Protein 9.92 H (0.0-0.3) mg/dL Total Protein 5.5 L (6.4-8.2) g/dL Albumin 1.7 L (3.4-5.0) g/dL Globulin 3.8 H (2.3-3.5) g/dL Albumin/Globulin Ratio 0.5 L (1.2-2.2) Procalcitonin ng/mL Urine Color Yellow (YELLOW) Urine Appearance Cloudy A (CLEAR) Urine pH 8.5 H (5.0-8.0) Ur Specific Marshall 1.015 (1.008-1.030) Urine Protein Negative (NEGATIVE) mg/dL Urine Glucose (UA) Negative (NEGATIVE) mg/dL Urine Ketones Negative (NEGATIVE) mg/dL Urine Occult Blood Trace-intact H (NEGATIVE) Urine Nitrite Positive H (NEGATIVE) Urine Bilirubin Negative (NEGATIVE) Urine Urobilinogen 0.2 (0.2-1.0) EU/dL Ur Leukocyte Esterase Large H (NEGATIVE) Urine RBC 0-5 (0-5) Urine WBC 10-20 H (0-5) Ur Epithelial Cells Not seen Amorphous Sediment Not seen Urine Bacteria Moderate Urine Mucus Not seen Influenza Type A RNA (NEGATIVE) RSV RNA (INAAT) (NEGATIVE) Influenza Type B RNA (NEGATIVE) SARS-CoV-2 RNA (DIAMOND) (NEGATIVE) 07/06/20 07/06/20 07/06/20 Range/Units 21:25 21:25 21:53 WBC (4.5-11.0) K/uL RBC (4.30-5.90) M/uL Hgb (12.0-15.0) g/dL Hct (40.0-54.0) % MCV (80-98) fL MCH (27-31) pg MCHC (32-36) % Plt Count (150-400) K/uL Neut % (Auto) (36-66) % Lymph % (Auto) (24-44) % Yell % (Auto) (2-6) % Eos % (Auto) (2-4) % Baso % (Auto) (0-1) % Sodium (140-148) mmol/L Potassium (3.6-5.2) mmol/L Chloride (100-108) mmol/L Carbon Dioxide (21-32) mmol/L Anion Gap (5.0-14.0) mmol/L BUN (7-18) mg/dL Creatinine (0.8-1.3) mg/dL Est Cr Clr Drug Dosing mL/min Estimated GFR (MDRD) (>60) Glucose (74-106) mg/dL Lactic Acid 0.8 (0.4-2.0) mmol/L Calcium (8.5-10.1) mg/dL Total Bilirubin (0.2-1.0) mg/dL AST (15-37) U/L ALT (12-78) U/L Alkaline Phosphatase (46-116) U/L C-Reactive Protein (0.0-0.3) mg/dL Total Protein (6.4-8.2) g/dL Albumin (3.4-5.0) g/dL Globulin (2.3-3.5) g/dL Albumin/Globulin Ratio (1.2-2.2) Procalcitonin 0.46 ng/mL Urine Color (YELLOW) Urine Appearance (CLEAR) Urine pH (5.0-8.0) Ur Specific Marshall (1.008-1.030) Urine Protein (NEGATIVE) mg/dL Urine Glucose (UA) (NEGATIVE) mg/dL Urine Ketones (NEGATIVE) mg/dL Urine Occult Blood (NEGATIVE) Urine Nitrite (NEGATIVE) Urine Bilirubin (NEGATIVE) Urine Urobilinogen (0.2-1.0) EU/dL Ur Leukocyte Esterase (NEGATIVE) Urine RBC (0-5) Urine WBC (0-5) Ur Epithelial Cells Amorphous Sediment Urine Bacteria Urine Mucus Influenza Type A RNA Negative (NEGATIVE) RSV RNA (INAAT) Negative (NEGATIVE) Influenza Type B RNA Negative (NEGATIVE) SARS-CoV-2 RNA (DIAMOND) Negative (NEGATIVE) - Re-Assessments/Exams Free Text/Narrative Re-Assessment/Exam: 07/06/20 23:42 patient's CBC is significant for a leukocyte count of 1.4, hemoglobin of 9.2, and platelet count of 25,000. This is consistent with his pancytopenia although it is a little worse than previously. The patient is scheduled for a bone marrow aspirate on 21 of July. His comprehensive metabolic panel is significant for a sodium of 130, elevated transaminases with an AST of 121 and an ALT of 196. The patient's alkaline phosphatase is 200. His C- reactive protein is 9.92. Venous lactic acid is 1.4 and his procalcitonin is normal. Urinalysis is significant for positive nitrites and leukocyte esterase with 10-20 WBCs and 0-5 RBCs. This is consistent with an acute urinary tract infection. The patient does have a suprapubic indwelling catheter and we will get a urine culture. I plan on starting him on antibiotics with cephalexin 250 mg/ 5 mL with 5 mL via PEG tube twice daily for 7 days. Urine culture is going to be pending as well. The patient has a propensity to get C. difficile colitis when on broad-spectrum antibiotics and my hope is that the cephalexin will be a narrow spectrum and not result in the C. difficile colitis. He should follow- up with his primary provider before the end of the antibiotics to ensure that we are clearing the infection. At this time I believe the patient is suitable for discharge back to the halfway. Indications to return were discussed. I discussed that his chest x-ray is unchanged from previously and does not show any evidence for an acute pneumonia. Departure - Departure Time of Disposition: 23:46 Disposition: Home, Self-Care 01 Clinical Impression: Lethargy, Elevated transaminase level Urinary tract infection Qualifiers: Urinary tract infection type: catheter-associated UTI Indwelling urinary catheter type: cystostomy catheter Encounter type: initial encounter Qualified Code(s): T83.510A - Infection and inflammatory reaction due to cystostomy catheter, initial encounter; N39.0 - Urinary tract infection, site not specified Cerebral palsy Qualifiers: Cerebral palsy type: unspecified type Qualified Code(s): G80.9 - Cerebral palsy, unspecified - Discharge Information Instructions: Urinary Tract Infection, Adult, [id number] Referrals: Shaun Hayden MD [Primary Care Provider] - Forms: ED Department Discharge Care Plan Goals: We will start Jerry on cephalexin 250 mg per 5 mL with a dose of 5 mL twice daily for 7 days. This has been sent out to the [facility] machine. The urine culture is pending. Should it show that the bacterium is resistant to cephalosporins we will contact you and adjust the antibiotics appropriately. Like him to follow- up for a repeat urinalysis in 7 days to ensure that we have cleared the infection. Sepsis Event Note (ED) - Evaluation Sepsis Screening Result: No Definite Risk - Focused Exam Vital Signs: Vital Signs Temp Pulse Resp BP Pulse Ox 07/06/20 23:02 80 96/59 L 91 L 07/06/20 22:32 85 88/61 L 95 07/06/20 22:05 82 80/54 L 94 L 07/06/20 21:51 85 96/59 L 95 07/06/20 21:15 16 97 07/06/20 21:03 36.2 C 80 16 90/59 L 97 - Problem List & Annotations (1) Cerebral palsy SNOMED Code(s): 617293626 Code(s): G80.9 - CEREBRAL PALSY, UNSPECIFIED Status: Chronic Current Visit: Yes Qualifiers: Cerebral palsy type: unspecified type Qualified Code(s): G80.9 - Cerebral palsy, unspecified (2) Elevated transaminase level SNOMED Code(s): 772157097, 139149636 Code(s): R74.01 - ELEVATION OF LEVELS OF LIVER TRANSAMINASE LEVELS Status: Chronic Priority: Medium Current Visit: Yes (3) Lethargy SNOMED Code(s): 116481679 Code(s): R53.83 - OTHER FATIGUE Status: Acute Priority: Medium Current Visit: Yes (4) Urinary tract infection SNOMED Code(s): 11470491 Code(s): N39.0 - URINARY TRACT INFECTION, SITE NOT SPECIFIED Status: Acute Priority: Medium Current Visit: Yes Qualifiers: Urinary tract infection type: catheter-associated UTI Indwelling urinary catheter type: cystostomy catheter Encounter type: initial encounter Qualified Code(s): T83.510A - Infection and inflammatory reaction due to cystostomy catheter, initial encounter; N39.0 - Urinary tract infection, site not specified - Problem List Review Problem List Initiated/Reviewed/Updated: Yes - My Orders Last 24 Hours: My Active Orders 07/06/20 21:19 Chest 1V Frontal [CR] Stat Blood Culture x2 Reflex Set [OM.PC] Urgent 07/06/20 21:20 Isolation [COMM] Stat 07/06/20 21:25 CULTURE BLOOD [BC] Urgent CULTURE BLOOD [BC] Urgent - Assessment/Plan Last 24 Hours: My Active Orders 07/06/20 21:19 Chest 1V Frontal [CR] Stat Blood Culture x2 Reflex Set [OM.PC] Urgent 07/06/20 21:20 Isolation [COMM] Stat 07/06/20 21:25 CULTURE BLOOD [BC] Urgent CULTURE BLOOD [BC] Urgent
[2020-07-06 22:38] LABS: CORONAVIRUS COVID-19 NAA NEGATIVE (NEGATIVE)
--- NOTE | 2020-07-07 09:08 | CR ---
CHEST: Portable 07/06/2020 at 9:51 PM CLINICAL HISTORY:Dyspnea COMPARISON:CT chest 06/06/2020 FINDINGS: There is some patchy density in the left lower lobe. There is also some prominence of left hilar markings which may represent perihilar infiltrate. There is density in the right upper lobe and apex which appears to be superimposition. Impression: Minimal patchy left lower lobe density. There is similar density on the prior CT chest this may represent persistent infiltrate. 3 month Follow-up CT chest was recommended on the prior CT report in May
== END 2020-07-07 00:04 | disposition home or self-care (01) ==
LOC: JP.ED 20:51
DX: G80.9 Cerebral palsy, unspecified (principal); N39.0 Urinary tract infection, site not specified; Z88.0 Allergy status to penicillin; R74.01 Elevation of levels of liver transaminase levels; Z20.822 Contact with and (suspected) exposure to COVID-19
CPT/HCPCS: 0241U; 36415; 71045; 71045-26; 80053; 81001; 83605; 84145; 85025; 86140; 87040; 87086; 99284; 99284-25

== ENCOUNTER 2020-07-08 22:39 | Inpatient (IN) | payer MEDICARE, MEDICAID ==
[2020-07-08] MEDS ORDERED: Morphine 10 MG/0.5 ML Oral Syringe GTUBE ONE (23:50)
[2020-07-08] MEDS ORDERED: Morphine 10 MG/0.5 ML Oral Syringe SL ONE (23:56)
--- NOTE | 2020-07-09 00:18 | EDM.PDOC ---
ED HPI GENERAL MEDICAL PROBLEM - General Chief Complaint: Gastrointestinal Problem Stated Complaint: VOMITING Time Seen by Provider: 07/08/20 23:40 Source of Information: Reports: Other (bingo attendant) History Limitations: Reports: Other (Patient is noncommunicative, history from the personal protection specialist) - History of Present Illness INITIAL COMMENTS - FREE TEXT/NARRATIVE: 35-year-old male with severe cerebral palsy, is having significant worsening of his overall health status with atrophy, generalized pain, had one episode of emesis today, and failure to thrive. He is starting to get skin breakdown on his sacrum and left lateral hip. He was on hospice last December after pneumonia, but improved enough with he was able to be discharged. Now however he is working with possible diagnoses of colon cancer, lung cancer, leukemia and has an oncology appointment for a bone marrow biopsy in the near future. Bowels are still moving. He just seems anxious and uncomfortable on a regular basis. He seems to be in constant pain by his caregiver. Onset: Unknown/Unsure Duration: Other (Worsening for several weeks) Associated Symptoms: Reports: Nausea/Vomiting. Denies: Fever/Chills, Headaches - Related Data Allergies Allergy/AdvReac Type Severity Reaction Status Date / Time amoxicillin Allergy Rash Verified 07/08/20 23:02 Penicillins Allergy Rash Verified 07/08/20 23:02 Home Meds: Home Meds Melatonin 5 mg PO BEDTIME 04/21/19 [History] Montelukast [Singulair] 10 mg GTUBE DAILY 04/21/19 [History] Multivits w-Min/Ferrous Gluc [Certavite-Antioxidant Liquid] 15 ml GTUBE DAILY 04/21/19 [History] Lactose-Reduced Food/Fiber [Jevity 1.5 Osvaldo Liquid] 8 oz GTUBE QID 06/05/20 [History] Fidaxomicin [Dificid] 200 mg GTUBE BID #28 tablet 06/08/20 [Rx] Pantoprazole [ProTONIX] 40 mg PO ACBREAKFAST #30 tab.cr 06/08/20 [Rx] cephALEXin [Keflex 250 MG/5 ML Susp] 250 mg PO BID 07/08/20 [History] Past Medical History Respiratory History: Reports: Asthma, Other (See Below) Other Respiratory History: Chronic respiratory Failure Gastrointestinal History: Reports: Chronic Constipation, GERD, Other (See Below) Other Gastrointestinal History: Severe protein-calorie malnutrition Genitourinary History: Reports: Retention, Urinary, UTI, Recurrent Other Genitourinary History: Neurogenic bladder has a supra pubic catheter with leg bag Musculoskeletal History: Reports: Other (See Below) Other Musculoskeletal History: Generalized muscle weakness; cerebral palsy Neurological History: Reports: Cerebral Palsy, Other (See Below) 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 Psychiatric History: Reports: Developmental Delay, Other (See Below) Other Psychiatric History: sleep disorder Endocrine/Metabolic History: Reports: Hypomagnesemia Hematologic History: Reports: Anemia, Idiopathic Thrombocytopenia - Past Surgical History Head Surgeries/Procedures: Reports: None GI Surgical History: Reports: Other (See Below) Other GI Surgeries/Procedures: g tube for tube feeding Male Surgical History: Reports: Suprapubic Catheter Placement Social & Family History - Family History Family Medical History: No Pertinent Family History - Tobacco Use Tobacco Use Status *Q: Never Tobacco User - Caffeine Use Caffeine Use: Reports: None - Recreational Drug Use Recreational Drug Use: No ED ROS GENERAL - Review of Systems Review Of Systems: See Below Reason Not Obtained: 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 No: Tachycardia GI/Abdominal: Other (Abdomen is flat, firm, does seem to be tender to palpation. G-tube is in place) Extremities: Other (Extremities are very cachectic) Skin Exam: Erythema (Erythema and slight bruising is developed over the sacrum and lateral left hip) Course - Vital Signs Last Recorded V/S: Last Vital Signs Temp 97 F 07/09/20 03:00 Pulse 67 07/09/20 06:00 Resp 20 07/09/20 06:00 BP 83/39 L 07/09/20 06:00 Pulse Ox 97 07/09/20 06:00 - Orders/Labs/Meds Orders: Active Orders 24 hr Category Date Time Status Sodium Chloride 0.9% [Normal Saline] 1,000 ml Med 07/09/20 01:30 Active IV ASDIRECTED cefTRIAXone [Rocephin] 1 gm Med 07/09/20 02:00 Active Sodium Chloride 0.9% [Normal Saline] 50 ml IV Q24H Medication Orders Albuterol (Albuterol 0.083% 2.5 Mg/3 Ml Neb Soln) 2.5 mg NEB Q4H PRN PRN Reason: Shortness Of Breath/wheezing Fidaxomicin (Fidaxomicin 200 Mg Tab) 200 mg GTUBE BID GARY Sodium Chloride (Normal Saline) 1,000 mls @ 125 mls/hr IV ASDIRECTED GARY Last Admin: 07/09/20 02:14 Dose: 125 mls/hr Documented by: WADE Ceftriaxone Sodium 1 gm/ (Sodium Chloride) 50 mls @ 100 mls/hr IV Q24H [facility] Last Admin: 07/09/20 02:14 Dose: 100 mls/hr Documented by: WADE Lorazepam (Lorazepam 2 Mg/Ml Sdv) 1 mg IV Q6H PRN PRN Reason: Agitation Melatonin (Melatonin 3 Mg Tab) 5 mg PO BEDTIME GARY Montelukast Sodium (Montelukast 10 Mg Tab) 10 mg GTUBE DAILY GARY Morphine Sulfate (Morphine 2 Mg/Ml Syringe) 1 mg IVPUSH Q2H [facility] Last Admin: 07/09/20 05:48 Dose: 1 mg Documented by: KELSEA Non-Formulary Medication (Multivits W-Min/Ferrous Gluc [Certavite-Antioxidant Liquid]) 15 ml GTUBE DAILY [facility] Ondansetron HCl (Ondansetron 4 Mg/2 Ml Sdv) 4 mg IV Q4H PRN PRN Reason: Nausea/Vomiting Pantoprazole Sodium (Pantoprazole 40 Mg Vial) 40 mg IV Q24H [facility] Last Admin: 07/09/20 03:24 Dose: 40 mg Documented by: KELSEA Labs: Laboratory Tests 07/08/20 07/08/20 Range/Units 23:50 23:50 WBC 3.4 L (4.5-11.0) K/uL RBC 2.85 L (4.30-5.90) M/uL Hgb 8.0 L (12.0-15.0) g/dL Hct 24.5 L (40.0-54.0) % MCV 86 (80-98) fL MCH 28 (27-31) pg MCHC 33 (32-36) % Plt Count 27 L* (150-400) K/uL Neut % (Auto) 76 H (36-66) % Lymph % (Auto) 17 L (24-44) % [place] % (Auto) 7 H (2-6) % Eos % (Auto) 0 L (2-4) % Baso % (Auto) 0 (0-1) % Sodium 129 L (140-148) mmol/L Potassium 4.3 (3.6-5.2) mmol/L Chloride 88 L (100-108) mmol/L Carbon Dioxide 30 (21-32) mmol/L Anion Gap 15.3 H (5.0-14.0) mmol/L BUN 54 H (7-18) mg/dL Creatinine 1.6 H D (0.8-1.3) mg/dL Est Cr Clr Drug Dosing 31.94 mL/min Estimated GFR (MDRD) 49 L (>60) Glucose 134 H (74-106) mg/dL Calcium 8.7 (8.5-10.1) mg/dL Total Bilirubin 0.5 (0.2-1.0) mg/dL AST 160 H (15-37) U/L ALT 175 H (12-78) U/L Alkaline Phosphatase 164 H (46-116) U/L Total Protein 5.3 L (6.4-8.2) g/dL Albumin 1.6 L (3.4-5.0) g/dL Globulin 3.7 H (2.3-3.5) g/dL Albumin/Globulin Ratio 0.4 L (1.2-2.2) Meds: Medications Generic Name Dose Route Start Last Admin Trade Name Freq PRN Reason Stop Dose Admin Albuterol 2.5 mg 07/09/20 02:39 Albuterol 0.083% 2.5 Mg/3 Ml Neb Soln NEB Q4H PRN Shortness Of Breath/wheezing Fidaxomicin 200 mg 07/09/20 09:00 Fidaxomicin 200 Mg Tab GTUBE BID GARY Sodium Chloride 1,000 mls @ 125 mls/hr 07/09/20 01:30 07/09/20 02:14 Normal Saline IV 125 mls/hr ASDIRECTED GARY Administration Ceftriaxone Sodium 1 gm/ 50 mls @ 100 mls/hr 07/09/20 02:00 07/09/20 02:14 Sodium Chloride IV 100 mls/hr Q24H GARY Administration Lorazepam 1 mg 07/09/20 02:39 Lorazepam 2 Mg/Ml Sdv IV Q6H PRN Agitation Melatonin 5 mg 07/09/20 21:00 Melatonin 3 Mg Tab PO BEDTIME GARY Montelukast Sodium 10 mg 07/09/20 09:00 Montelukast 10 Mg Tab GTUBE DAILY GARY Morphine Sulfate 1 mg 07/09/20 05:00 07/09/20 05:48 Morphine 2 Mg/Ml Syringe IVPUSH 1 mg Q2H GARY Administration Non-Formulary Medication 15 ml 07/09/20 09:00 Multivits W-Min/Ferrous Gluc [Certavite-Antioxidant Liquid] GTUBE DAILY GARY Ondansetron HCl 4 mg 07/09/20 02:39 Ondansetron 4 Mg/2 Ml Sdv IV Q4H PRN Nausea/Vomiting Pantoprazole Sodium 40 mg 07/09/20 02:39 07/09/20 03:24 Pantoprazole 40 Mg Vial IV 40 mg Q24H GARY Administration Discontinued Medications Generic Name Dose Route Start Last Admin Trade Name Freq PRN Reason Stop Dose Admin Morphine Sulfate 5 mg 07/08/20 23:56 07/08/20 23:59 Morphine 10 Mg/0.5 Ml Oral Syringe SL 07/08/20 23:57 5 mg ONETIME ONE Administration Morphine Sulfate 1 mg 07/09/20 02:39 07/09/20 03:19 Morphine 2 Mg/Ml Syringe IVPUSH 1 mg Q2H GARY Administration - Re-Assessments/Exams Free Text/Narrative Re-Assessment/Exam: 07/09/20 00:34 Chemical Dependency Therapist is uncomfortable taking the patient back because of his significant w orsening medically. CBC and CMP were really obtained to compare to levels 2 days ago, and 5 mg of morphine was given sublingually. This patient should be admitted for comfort cares and reviewing his chart and recent presentation does not appear to be strong enough to withstand any treatment for illness. 07/09/20 02:02 Hemoglobin has dropped 1.2 points in the last 2 days, white count however and platelets are slightly improved. Buccal morphine seem to help the patient's pain level, patient will be admitted to the hospitalist service for hydration, evaluation of abdominal pain and failure to thrive. Departure - Departure Time of Disposition: 02:39 Disposition: Admitted As Inpatient 65 Clinical Impression: Abdominal pain, Pancytopenia, Cerebral palsy, Vomiting - Discharge Information Sepsis Event Note (ED) - Evaluation Sepsis Screening Result: No Definite Risk - Focused Exam Vital Signs: Vital Signs Temp Pulse Resp BP Pulse Ox 07/08/20 23:32 97.4 F 71 18 82/52 L 97
--- NOTE | 2020-07-09 01:55 | PCM.HP.2 ---
H&P History of Present Illness - General Date of Service: 07/08/20 Admit Problem/Dx: Admission Diagnosis/Problem Admission Diagnosis/Problem Abdominal pain Source of Information: Family (Foster Mom) History Limitations: Reports: Physical Impairment - History of Present Illness Initial Comments - Free Text/Narative: chief complaint: abdominal pain 35-year-old male with severe cerebral palsy disease, is having significant worsening of his overall health status with atrophy, generalized pain, had one episode of emesis today, and failure to thrive. He is starting to get skin breakdown on his sacrum and left lateral hip. He was on hospice last December after pneumonia, but improved enough with he was able to be discharged. Now however he is working with possible diagnoses of colon cancer, lung cancer, leukemia and has an oncology appointment for a bone marrow biopsy in the near future. Bowels are still moving. He just seems anxious and uncomfortable on a regular basis. Onset of Symptoms: Reports: Gradual Duration of Symptoms: Reports: Getting Worse Location: Reports: Abdomen, Generalized Quality: Reports: Other (moaning and restless) Severity: Severe Improves with: Reports: None Worsens with: Reports: None Context: Reports: Other (complex medical conditions with new diagnosis of possible cancers.) Associated Symptoms: Reports: Fever/Chills, Nausea/Vomiting, Weakness, Other (restless and moaning. ) - Related Data Allergies/Adverse Reactions: Allergies Allergy/AdvReac Type Severity Reaction Status Date / Time amoxicillin Allergy Rash Verified 07/08/20 23:02 Penicillins Allergy Rash Verified 07/08/20 23:02 Home Medications: Home Meds Melatonin 5 mg PO BEDTIME 04/21/19 [History] Montelukast [Singulair] 10 mg GTUBE DAILY 04/21/19 [History] Multivits w-Min/Ferrous Gluc [Certavite-Antioxidant Liquid] 15 ml GTUBE DAILY 04/21/19 [History] Lactose-Reduced Food/Fiber [Jevity 1.5 Osvaldo Liquid] 8 oz GTUBE QID 06/05/20 [History] Fidaxomicin [Dificid] 200 mg GTUBE BID #28 tablet 06/08/20 [Rx] Pantoprazole [ProTONIX] 40 mg PO ACBREAKFAST #30 tab.cr 06/08/20 [Rx] cephALEXin [Keflex 250 MG/5 ML Susp] 250 mg PO BID 07/08/20 [History] Past Medical History Respiratory History: Reports: Asthma, Other (See Below) Other Respiratory History: Chronic respiratory Failure Gastrointestinal History: Reports: Chronic Constipation, GERD, Other (See Below) Other Gastrointestinal History: Severe protein-calorie malnutrition Genitourinary History: Reports: Retention, Urinary, UTI, Recurrent Other Genitourinary History: Neurogenic bladder has a supra pubic catheter with leg bag Musculoskeletal History: Reports: Other (See Below) Other Musculoskeletal History: Generalized muscle weakness; cerebral palsy Neurological History: Reports: Cerebral Palsy, Other (See Below) 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 Psychiatric History: Reports: Developmental Delay, Other (See Below) Other Psychiatric History: sleep disorder Endocrine/Metabolic History: Reports: Hypomagnesemia Hematologic History: Reports: Anemia, Idiopathic Thrombocytopenia - Past Surgical History Head Surgeries/Procedures: Reports: None GI Surgical History: Reports: Other (See Below) Other GI Surgeries/Procedures: g tube for tube feeding Male Surgical History: Reports: Suprapubic Catheter Placement Social & Family History - Family History Family Medical History: No Pertinent Family History - Tobacco Use Tobacco Use Status *Q: Never Tobacco User - Caffeine Use Caffeine Use: Reports: None - Recreational Drug Use Recreational Drug Use: No - Living Situation & Occupation Living situation: Reports: Other (lives in Foster Care- same home for one year. Guardian is his Father Tevin Trinh.) H&P Review of Systems - Review of Systems: Review Of Systems: Unable To Obtain (severe global delay, non-verbal, report of symptoms given by Foster Mom.) Reason Not Obtained: non verbal, severe global delay, Cerebral palsy General: Reports: Chills (Foster Mom reports chills without fever), Other (moaning and restless today. but has been gradual decline in health for the past few months.) HEENT: Reports: No Symptoms Pulmonary: Reports: No Symptoms Cardiovascular: Reports: No Symptoms Gastrointestinal: Reports: Abdominal Pain, Diarrhea (history of c-diff), Flatus, Nausea, Vomiting Genitourinary: Reports: Other (current treatment for bladder infection with keflex) Musculoskeletal: Reports: No Symptoms Skin: Reports: Change in Color (coccyx and left lateral hip with redness and warmth, no open wounds at this time) Psychiatric: Reports: Other (restless and moaning) Neurological: Reports: Pre-Existing Deficit Hematologic/Lymphatic: Reports: Other (WBC 3.4, platelets 27-currently being schedule for bone marrow bx rule out cancer) Immunologic: Reports: No Symptoms Exam - Exam Exam: See Below - Vital Signs Vital Signs: Last Vital Signs Temp 97.4 F 07/08/20 23:32 Pulse 71 07/08/20 23:32 Resp 18 07/08/20 23:32 BP 82/52 L 07/08/20 23:32 Pulse Ox 97 07/08/20 23:32 Weight: 78 lb - Exam Quality Assessment: Urinary Catheter (suprapubic cath.), Skin Breakdown (left lateral hip and coccyx) General: Alert, Cooperative, Moderate Distress, Other (thin and curled up in position) HEENT: PERRLA, Conjunctiva Clear, EOMI, Hearing Intact, Other (drooling, mouth dry) Neck: Supple, Trachea Midline Lungs: Clear to Auscultation, Normal Respiratory Effort, Decreased Breath Sounds (bilateral at bases) Cardiovascular: Regular Rate, Regular Rhythm, Normal S1, Normal S2 GI/Abdominal Exam: No Distention, Abnormal Bowel Sounds (hypoactive) (Male) Exam: Deferred Rectal (Males) Exam: Deferred Back Exam: Normal Inspection, Other (thin and bony, skin red at coccyx and left lateral hip. skin thin and fragile) Extremities: No Pedal Edema, Normal Capillary Refill, Limited Range of Motion (due to contractures.), Increased Warmth (left hip), Redness (left upper hip and thigh) Peripheral Pulses: 2+: Radial (L), Radial (R) Skin: Decubitis (left lateral hip/thigh and coccyx) Neurological: Other (unable to due to contractures and severe global delay.) Neuro Extensive - Motor, Sensory, Reflexes: Motor/Sensory Deficits Psychiatric: Alert, Agitated (restless and moaning) - Patient Data Lab Results Last 24 hrs: Laboratory Results - last 24 hr 07/08/20 07/08/20 Range/Units 23:50 23:50 WBC 3.4 L (4.5-11.0) K/uL RBC 2.85 L (4.30-5.90) M/uL Hgb 8.0 L (12.0-15.0) g/dL Hct 24.5 L (40.0-54.0) % MCV 86 (80-98) fL MCH 28 (27-31) pg MCHC 33 (32-36) % Plt Count 27 L* (150-400) K/uL Neut % (Auto) 76 H (36-66) % Lymph % (Auto) 17 L (24-44) % [place] % (Auto) 7 H (2-6) % Eos % (Auto) 0 L (2-4) % Baso % (Auto) 0 (0-1) % Sodium 129 L (140-148) mmol/L Potassium 4.3 (3.6-5.2) mmol/L Chloride 88 L (100-108) mmol/L Carbon Dioxide 30 (21-32) mmol/L Anion Gap 15.3 H (5.0-14.0) mmol/L BUN 54 H (7-18) mg/dL Creatinine 1.6 H D (0.8-1.3) mg/dL Est Cr Clr Drug Dosing 31.94 mL/min Estimated GFR (MDRD) 49 L (>60) Glucose 134 H (74-106) mg/dL Calcium 8.7 (8.5-10.1) mg/dL Total Bilirubin 0.5 (0.2-1.0) mg/dL AST 160 H (15-37) U/L ALT 175 H (12-78) U/L Alkaline Phosphatase 164 H (46-116) U/L Total Protein 5.3 L (6.4-8.2) g/dL Albumin 1.6 L (3.4-5.0) g/dL Globulin 3.7 H (2.3-3.5) g/dL Albumin/Globulin Ratio 0.4 L (1.2-2.2) Result Diagrams: 07/08/20 23:50 07/08/20 23:50 Sepsis Event Note - Evaluation Sepsis Screening Result: No Definite Risk - Focused Exam Vital Signs: Vital Signs Temp Pulse Resp BP Pulse Ox 07/08/20 23:32 97.4 F 71 18 82/52 L 97 - Problem List (1) Abdominal pain SNOMED Code(s): 29606821 ICD Code: R10.9 - UNSPECIFIED ABDOMINAL PAIN Status: Acute Priority: High Current Visit: Yes Qualifiers: Abdominal location: generalized Qualified Code(s): R10.84 - Generalized abdominal pain (2) Pancytopenia SNOMED Code(s): 581594201 ICD Code: D61.818 - OTHER PANCYTOPENIA Status: Acute Priority: High Current Visit: Yes (3) UTI, Urinary tract infectious disease SNOMED Code(s): 99362929 ICD Code: N39.0 - URINARY TRACT INFECTION, SITE NOT SPECIFIED Status: Acute Priority: High Current Visit: Yes (4) Cerebral palsy SNOMED Code(s): 315223801 ICD Code: G80.9 - CEREBRAL PALSY, UNSPECIFIED Status: Chronic Priority: High Current Visit: Yes Qualifiers: Cerebral palsy type: spastic quadriplegic Qualified Code(s): G80.0 - Spastic quadriplegic cerebral palsy (5) History of Clostridioides difficile infection SNOMED Code(s): 702462937, 820060340 ICD Code: Z86.19 - PERSONAL HISTORY OF OTHER INFECTIOUS AND PARASITIC DISEASES Status: Acute Priority: High Current Visit: Yes Problem List Initiated/Reviewed/Updated: Yes Orders Last 24hrs: Active Orders 24 hr Category Date Time Status Patient Status Manage Transfer [TRANSFER] Routine ADT 07/09/20 01:33 Ordered Sodium Chloride 0.9% [Normal Saline] 1,000 ml Med 07/09/20 01:30 Active IV ASDIRECTED cefTRIAXone [Rocephin] 1 gm Med 07/09/20 02:00 Active Sodium Chloride 0.9% [Normal Saline] 50 ml IV Q24H Resuscitation Status Routine Resus Stat 07/09/20 01:35 Ordered Medication Orders Sodium Chloride (Normal Saline) 1,000 mls @ 125 mls/hr IV ASDIRECTED GARY Ceftriaxone Sodium 1 gm/ (Sodium Chloride) 50 mls @ 100 mls/hr IV Q24H [facility] Assessment/Plan Comment:: ASSESSMENT / PLAN: Abdominal Pain, Pancytopenia, Urinary Tract infection, Cerebral Palsy, hx of c-diff ABDOMINAL PAIN- This is a 35 year old male with acute and chronic medical diagnosis. His Foster Mom reports he has been declining in health the past year, the past few months seems to be getting worse. He was on hospice last year for pneumonia but survived and now is back home with Foster Family. His Father Tevin Trinh is guardian. Today he has been more restless, moaning, vomiting after tube feeding this morning and evening. seems to be in pain. no fevers noted but seems to be cooler than normal. He is currently being treated for a bladder infection with Keflex. and beginning of skin breakdown on tailbone and left lateral hip and thigh. He has appointment with Oncology and bone marrow bx on 07/21/2020 to rule out leukemia, also has possible cancer in his lungs, colon and blood. ABDOMINAL PAIN- agitated, restless and moaning today. -Hold tube feeding till nausea and vomiting resolved -IV Zofran -IV Morphine for restlessness and agitation -IV fluids for rehydration URINARY TRACT INFECTION-reports current treatment for urinary tract infection for past 3 days. Keflex po. -IV Fluids for rehydration NS 125 mL per hour. -IV Antibiotic Rocephin 1 gram IV every 24 hours -Advise to notify nurses of any fever or worsen pain -And a.m. labs: CBC, BMP Pancytopenia- abnormal CBC- WBC 3.4, hemoglobin 8.0, hct 24.5, platelets 27 -monitor labs -appointments pending to rule out leukemia Cerebral Palsy- declining health this past year, is severely disabled by this condition and requires daily assistance for ADL and tube feeding. Non-verbal with severe global delay. Aspiration risk- tube fed, has supra pubic cath., skin breakdown on left lateral hip and coccyx -apply dressing for prevention of skin break down- left lateral hip and coccyx -hold feeding due to nausea and vomiting, aspiration risk. -NightTime darken room at night- low noise -Daytime like sunlight, watching TV with bright colors. -activity- has a rattle in his bag likes to play with, chews on hands and blanket Hx of C-Diff -stool culture ordered to rule on acute illness Maintenance issues -Orders home meds: chronic medication, hold oral medication due to nausea and vomiting, aspiration risk -Nutrition Nothing by mouth -Hendrix catheter - has supra-pubic cath -DVT - SCD- if tolerate. no Lovenox due to anemia -PPI - IV Protonix 40 mg daily CODE STATUS: DNR/DNI Admission status: Admit to ICU Med-Surg overflow Admission justification. This patient will be admitted for inpatient services and is medically appropriate meeting medical necessity for inpatient admission as outlined in my documentation. I reasonably expect the patient will require inpatient services that span. Time over 2 midnights. I reasonably expect this patient to be discharged or transferred within 96 hours after admission to the critical access hospital. Disposition: Foster home Primary care provider: Dr. Hayden Hospitalist: Dr. Smith - Mortality Measure Prognosis:: Poor
[2020-07-09] MEDS: Sodium Chloride 0.9% 1,000 ML IV SCH ×4 (02:14→18:03)
[2020-07-09] MEDS: cefTRIAXone 1 GM in Sodium Chloride 0.9% 50 ML IV SCH (02:14)
[2020-07-09] MEDS ORDERED: Albuterol 0.083% 2.5 MG/3 ML Neb Soln NEB PRN (02:39)
[2020-07-09] MEDS ORDERED: Ondansetron 4 MG/2 ML SDV IV PRN (02:39)
[2020-07-09] MEDS ORDERED: Morphine 2 MG/ML SYRINGE IVPUSH SCH ×2 (02:39→05:00)
[2020-07-09] MEDS ORDERED: Pantoprazole 40 MG Vial IV SCH (02:39)
[2020-07-09] MEDS ORDERED: FERROUS GLUC GTUBE SCH (09:00)
[2020-07-09] MEDS ORDERED: MULTIVITS W MIN GTUBE SCH (09:00)
[2020-07-09] MEDS ORDERED: [UNRECOGNIZED DRUG - OTHER] GTUBE SCH (09:00)
[2020-07-09] MEDS: Morphine 2 MG/ML SYRINGE IVPUSH SCH (10:40)
[2020-07-09] MEDS: Montelukast 10 MG Tab GTUBE SCH (12:34)
[2020-07-09] MEDS: Fidaxomicin 200 MG Tab GTUBE SCH ×2 (12:34→21:15)
[2020-07-09] MEDS ORDERED: Sodium Chloride 0.9% 500 ML IV ONE (13:00)
--- NOTE | 2020-07-09 14:32 | PCM.PN ---
- General Info Date of Service: 07/09/20 Subjective Update: Mr. Trinh is a 35-year-old gentleman with a history of cerebral palsy. He has a recent history of progressive decline with increased weakness and malnutrition despite tube feedings. He had been more uncomfortable at home and was brought into the emergency department. On evaluation was found to have evidence of urinary tract infection. He has had no further nausea or vomiting since admission. I have discussed current situation with his father Tevin and reviewed all of the recent findings. At this time his father would like us to move him to comfort cares only with hospice admission. I reviewed this with his foster mother Zuleika who is also in agreement. Jerry is nonverbal and unable to provide me meaningful information concerning symptoms or review of systems. - Patient Data Vitals - Most Recent: Last Vital Signs Temp 95.7 F L 07/09/20 08:30 Pulse 66 07/09/20 12:30 Resp 16 07/09/20 12:30 BP 73/43 L 07/09/20 12:30 Pulse Ox 93 L 07/09/20 12:30 Weight - Most Recent: 81 lb 6.4 oz I&O - Last 24 Hours: Intake & Output 07/08/20 07/09/20 07/09/20 22:59 06:59 14:59 Intake Total 349 1405 Output Total 1850 1250 Balance -1501 155 Lab Results Last 24 Hours: Laboratory Results - last 24 hr 07/08/20 07/08/20 07/09/20 Range/Units 23:50 23:50 05:01 WBC 3.4 L 2.8 L (4.5-11.0) K/uL RBC 2.85 L 2.66 L (4.30-5.90) M/uL Hgb 8.0 L 7.3 L (12.0-15.0) g/dL Hct 24.5 L 23.1 L (40.0-54.0) % MCV 86 87 (80-98) fL MCH 28 27 (27-31) pg MCHC 33 32 (32-36) % Plt Count 27 L* 28 L* (150-400) K/uL Neut % (Auto) 76 H 71 H (36-66) % Lymph % (Auto) 17 L 22 L (24-44) % [place] % (Auto) 7 H 7 H (2-6) % Eos % (Auto) 0 L 0 L (2-4) % Baso % (Auto) 0 0 (0-1) % Sodium 129 L (140-148) mmol/L Potassium 4.3 (3.6-5.2) mmol/L Chloride 88 L (100-108) mmol/L Carbon Dioxide 30 (21-32) mmol/L Anion Gap 15.3 H (5.0-14.0) mmol/L BUN 54 H (7-18) mg/dL Creatinine 1.6 H D (0.8-1.3) mg/dL Est Cr Clr Drug Dosing 31.94 mL/min Estimated GFR (MDRD) 49 L (>60) Glucose 134 H (74-106) mg/dL Calcium 8.7 (8.5-10.1) mg/dL Total Bilirubin 0.5 (0.2-1.0) mg/dL AST 160 H (15-37) U/L ALT 175 H (12-78) U/L Alkaline Phosphatase 164 H (46-116) U/L Total Protein 5.3 L (6.4-8.2) g/dL Albumin 1.6 L (3.4-5.0) g/dL Globulin 3.7 H (2.3-3.5) g/dL Albumin/Globulin Ratio 0.4 L (1.2-2.2) // Range/Units 05:01 WBC (4.5-11.0) K/uL RBC (4.30-5.90) M/uL Hgb (12.0-15.0) g/dL Hct (40.0-54.0) % MCV (80-98) fL MCH (27-31) pg MCHC (32-36) % Plt Count (150-400) K/uL Neut % (Auto) (36-66) % Lymph % (Auto) (24-44) % [place] % (Auto) (2-6) % Eos % (Auto) (2-4) % Baso % (Auto) (0-1) % Sodium 136 L (140-148) mmol/L Potassium 4.2 (3.6-5.2) mmol/L Chloride 94 L (100-108) mmol/L Carbon Dioxide 32 (21-32) mmol/L Anion Gap 14.2 H (5.0-14.0) mmol/L BUN 55 H (7-18) mg/dL Creatinine 1.5 H (0.8-1.3) mg/dL Est Cr Clr Drug Dosing 35.55 mL/min Estimated GFR (MDRD) 53 L (>60) Glucose 79 (74-106) mg/dL Calcium 8.7 (8.5-10.1) mg/dL Total Bilirubin (0.2-1.0) mg/dL AST (15-37) U/L ALT (12-78) U/L Alkaline Phosphatase (46-116) U/L Total Protein (6.4-8.2) g/dL Albumin (3.4-5.0) g/dL Globulin (2.3-3.5) g/dL Albumin/Globulin Ratio (1.2-2.2) Med Orders - Current: Current Medications Albuterol (Albuterol 0.083% 2.5 Mg/3 Ml Neb Soln) 2.5 mg NEB Q4H PRN PRN Reason: Shortness Of Breath/wheezing Fidaxomicin (Fidaxomicin 200 Mg Tab) 200 mg GTUBE BID [facility] Last Admin: 07/09/20 12:34 Dose: 200 mg Documented by: Ceftriaxone Sodium 1 gm/ (Sodium Chloride) 50 mls @ 100 mls/hr IV Q24H [facility] Last Admin: 07/09/20 02:14 Dose: 100 mls/hr Documented by: Sodium Chloride (Normal Saline) 500 mls @ 250 mls/hr IV ASDIRECTED ONE Stop: 07/09/20 14:59 Last Admin: 07/09/20 13:15 Dose: 250 mls/hr Documented by: Sodium Chloride (Normal Saline) 1,000 mls @ 50 mls/hr IV ASDIRECTED GARY Lorazepam (Lorazepam 2 Mg/Ml Sdv) 1 mg IV Q6H PRN PRN Reason: Agitation Melatonin (Melatonin 3 Mg Tab) 6 mg PO BEDTIME [facility] Montelukast Sodium (Montelukast 10 Mg Tab) 10 mg GTUBE DAILY [facility] Last Admin: 07/09/20 12:34 Dose: 10 mg Documented by: Morphine Sulfate (Morphine 2 Mg/Ml Syringe) 1 mg IVPUSH Q2H PRN PRN Reason: Pain Non-Formulary Medication (Multivits W-Min/Ferrous Gluc [Certavite-Antioxidant Liquid]) 15 ml GTUBE DAILY [facility] Ondansetron HCl (Ondansetron 4 Mg/2 Ml Sdv) 4 mg IV Q4H PRN PRN Reason: Nausea/Vomiting Pantoprazole Sodium (Pantoprazole 40 Mg Vial) 40 mg IV Q24H GARY Discontinued Medications Sodium Chloride (Normal Saline) 1,000 mls @ 125 mls/hr IV ASDIRECTED [facility] Last Admin: 07/09/20 10:35 Dose: 125 mls/hr Documented by: Morphine Sulfate (Morphine 10 Mg/0.5 Ml Oral Syringe) 5 mg SL ONETIME ONE Stop: 07/08/20 23:57 Last Admin: 07/08/20 23:59 Dose: 5 mg Documented by: Morphine Sulfate (Morphine 2 Mg/Ml Syringe) 1 mg IVPUSH Q2H [facility] Last Admin: 07/09/20 03:19 Dose: 1 mg Documented by: Morphine Sulfate (Morphine 2 Mg/Ml Syringe) 1 mg IVPUSH Q2H [facility] Last Admin: 07/09/20 05:48 Dose: 1 mg Documented by: Morphine Sulfate (Morphine 2 Mg/Ml Syringe) 1 mg IVPUSH Q2H [facility] Last Admin: 07/09/20 10:40 Dose: Not Given Documented by: Pantoprazole Sodium (Pantoprazole 40 Mg Vial) 40 mg IV Q24H [facility] Last Admin: 07/09/20 03:24 Dose: 40 mg Documented by: - Exam General: Alert, No Acute Distress Lungs: Clear to Auscultation, Normal Respiratory Effort Cardiovascular: Regular Rate, Regular Rhythm, No Murmurs GI/Abdominal Exam: Soft, Non-Tender, No Organomegaly, No Distention - Patient Data Lab Results Last 24 hrs: Laboratory Results - last 24 hr 07/08/20 07/08/20 07/09/20 Range/Units 23:50 23:50 05:01 WBC 3.4 L 2.8 L (4.5-11.0) K/uL RBC 2.85 L 2.66 L (4.30-5.90) M/uL Hgb 8.0 L 7.3 L (12.0-15.0) g/dL Hct 24.5 L 23.1 L (40.0-54.0) % MCV 86 87 (80-98) fL MCH 28 27 (27-31) pg MCHC 33 32 (32-36) % Plt Count 27 L* 28 L* (150-400) K/uL Neut % (Auto) 76 H 71 H (36-66) % Lymph % (Auto) 17 L 22 L (24-44) % [place] % (Auto) 7 H 7 H (2-6) % Eos % (Auto) 0 L 0 L (2-4) % Baso % (Auto) 0 0 (0-1) % Sodium 129 L (140-148) mmol/L Potassium 4.3 (3.6-5.2) mmol/L Chloride 88 L (100-108) mmol/L Carbon Dioxide 30 (21-32) mmol/L Anion Gap 15.3 H (5.0-14.0) mmol/L BUN 54 H (7-18) mg/dL Creatinine 1.6 H D (0.8-1.3) mg/dL Est Cr Clr Drug Dosing 31.94 mL/min Estimated GFR (MDRD) 49 L (>60) Glucose 134 H (74-106) mg/dL Calcium 8.7 (8.5-10.1) mg/dL Total Bilirubin 0.5 (0.2-1.0) mg/dL AST 160 H (15-37) U/L ALT 175 H (12-78) U/L Alkaline Phosphatase 164 H (46-116) U/L Total Protein 5.3 L (6.4-8.2) g/dL Albumin 1.6 L (3.4-5.0) g/dL Globulin 3.7 H (2.3-3.5) g/dL Albumin/Globulin Ratio 0.4 L (1.2-2.2) // Range/Units 05:01 WBC (4.5-11.0) K/uL RBC (4.30-5.90) M/uL Hgb (12.0-15.0) g/dL Hct (40.0-54.0) % MCV (80-98) fL MCH (27-31) pg MCHC (32-36) % Plt Count (150-400) K/uL Neut % (Auto) (36-66) % Lymph % (Auto) (24-44) % [place] % (Auto) (2-6) % Eos % (Auto) (2-4) % Baso % (Auto) (0-1) % Sodium 136 L (140-148) mmol/L Potassium 4.2 (3.6-5.2) mmol/L Chloride 94 L (100-108) mmol/L Carbon Dioxide 32 (21-32) mmol/L Anion Gap 14.2 H (5.0-14.0) mmol/L BUN 55 H (7-18) mg/dL Creatinine 1.5 H (0.8-1.3) mg/dL Est Cr Clr Drug Dosing 35.55 mL/min Estimated GFR (MDRD) 53 L (>60) Glucose 79 (74-106) mg/dL Calcium 8.7 (8.5-10.1) mg/dL Total Bilirubin (0.2-1.0) mg/dL AST (15-37) U/L ALT (12-78) U/L Alkaline Phosphatase (46-116) U/L Total Protein (6.4-8.2) g/dL Albumin (3.4-5.0) g/dL Globulin (2.3-3.5) g/dL Albumin/Globulin Ratio (1.2-2.2) Result Diagrams: 07/09/20 05:01 07/09/20 05:01 Sepsis Event Note - Evaluation Sepsis Screening Result: No Definite Risk - Focused Exam Vital Signs: Vital Signs Temp Pulse Resp BP Pulse Ox 07/09/20 12:30 66 16 73/43 L 93 L 07/09/20 12:00 65/39 L 07/09/20 08:30 95.7 F L 69 14 92/45 L 96 07/09/20 06:00 67 20 83/39 L 97 07/09/20 03:00 97 F 75 133/96 H 96 - Problem List Review Problem List Initiated/Reviewed/Updated: Yes - My Orders Last 24 Hours: My Active Orders 07/09/20 13:00 Sodium Chloride 0.9% [Normal Saline] 500 ml IV ASDIRECTED 07/09/20 13:15 Morphine 1 mg IVPUSH Q2H PRN 07/09/20 14:26 Consult to Hospice [CONS] Routine 07/09/20 14:26 Resuscitation Status Routine 07/09/20 14:30 Sodium Chloride 0.9% @ 50 MLS/HR(1000ml) Sodium Chloride 0.9% [Normal Saline] 1,000 ml IV ASDIRECTED - Plan Plan:: ASSESSMENT / PLAN ABDOMINAL PAIN- agitated, restless and moaning today. -Resume tube feedings if possible -IV Zofran -IV Morphine for restlessness and agitation -IV fluids for rehydration, decrease rate to 50 cc/h URINARY TRACT INFECTION -IV Antibiotic Rocephin 1 gram IV every 24 hours Pancytopenia- abnormal CBC- WBC 3.4, hemoglobin 8.0, hct 24.5, platelets 27 -monitor labs Cerebral Palsy- declining health this past year, is severely disabled by this condition and requires daily assistance for ADL and tube feeding. Non-verbal with severe global delay. Aspiration risk- tube fed, has supra pubic cath., skin breakdown on left lateral hip and coccyx -apply dressing for prevention of skin break down- left lateral hip and coccyx -hold feeding due to nausea and vomiting, aspiration risk. -NightTime darken room at night- low noise -Daytime like sunlight, watching TV with bright colors. -activity- has a rattle in his bag likes to play with, chews on hands and blanket Hx of C-Diff -Currently on antibiotic therapy Palliative care-will move to comfort cares only and hospice admission -Morphine as needed for comfort Maintenance issues -Orders home meds: chronic medication, hold oral medication due to nausea and vomiting, aspiration risk -Nutrition Nothing by mouth -Hendrix catheter - has supra-pubic cath -DVT - SCD- if tolerate. no Lovenox due to anemia and thrombocytopenia -PPI - IV Protonix 40 mg daily CODE STATUS: DNR/DNI Admission status: Admit to ICU Med-Surg overflow Admission justification. This patient will be admitted for inpatient services and is medically appropriate meeting medical necessity for inpatient admission as outlined in my documentation. I reasonably expect the patient will require inpatient services that span. Time over 2 midnights. I reasonably expect this patient to be discharged or transferred within 96 hours after admission to the critical access hospital. Disposition: [facility] [place] Primary care provider: Dr. Hayden Hospitalist: Dr. Smith
[2020-07-09] MEDS: Morphine 2 MG/ML SYRINGE IVPUSH PRN ×2 (19:24→22:39)
[2020-07-09] MEDS ORDERED: Melatonin 3 MG Tab PO SCH (21:00)
[2020-07-09] MEDS: Melatonin 3 MG Tab PO SCH (21:15)
[2020-07-09] MEDS: Pantoprazole 40 MG Vial IV SCH (21:21)
[2020-07-09] MEDS: LORazepam 2 MG/ML SDV IV PRN (23:06)
[2020-07-10] MEDS: cefTRIAXone 1 GM in Sodium Chloride 0.9% 50 ML IV SCH (02:07)
[2020-07-10] MEDS: Morphine 2 MG/ML SYRINGE IVPUSH PRN ×3 (05:25→14:12)
[2020-07-10] MEDS: Montelukast 10 MG Tab GTUBE SCH (08:25)
[2020-07-10] MEDS: Fidaxomicin 200 MG Tab GTUBE SCH ×2 (08:25→21:29)
[2020-07-10] MEDS: Multivitamins with Iron Tab.Chew GTUBE SCH (08:25)
--- NOTE | 2020-07-10 09:31 | PCM.PN ---
- General Info Date of Service: 07/10/20 Subjective Update: No acute events overnight. Patient is nonverbal so I am unable to gather any reliable history. Nursing staff reports that intermittently he appears uncomfortable and has received a few doses of morphine. He appears comfortable at the time of my examination this morning. Vitals are stable. Hospice consultation is pending. - Review of Systems General: Reports: Other (non-verbal ) - Patient Data Vitals - Most Recent: Last Vital Signs Temp 35.5 C L 07/10/20 08:00 Pulse 65 07/10/20 08:00 Resp 18 07/10/20 08:00 BP 67/45 L 07/10/20 08:00 Pulse Ox 98 07/10/20 08:00 Weight - Most Recent: 36.922 kg I&O - Last 24 Hours: Intake & Output 07/09/20 07/10/20 07/10/20 22:59 06:59 14:59 Intake Total 0 974 Output Total 725 500 Balance -725 474 Med Orders - Current: Current Medications Albuterol (Albuterol 0.083% 2.5 Mg/3 Ml Neb Soln) 2.5 mg NEB Q4H PRN PRN Reason: Shortness Of Breath/wheezing Fidaxomicin (Fidaxomicin 200 Mg Tab) 200 mg GTUBE BID [facility] Last Admin: 07/10/20 08:25 Dose: 200 mg Documented by: Ceftriaxone Sodium 1 gm/ (Sodium Chloride) 50 mls @ 100 mls/hr IV Q24H [facility] Last Admin: 07/10/20 02:07 Dose: 100 mls/hr Documented by: Sodium Chloride (Normal Saline) 1,000 mls @ 50 mls/hr IV ASDIRECTED [facility] Last Admin: 07/09/20 18:03 Dose: 50 mls/hr Documented by: Lorazepam (Lorazepam 2 Mg/Ml Sdv) 1 mg IV Q6H PRN PRN Reason: Agitation Last Admin: 07/09/20 23:06 Dose: 1 mg Documented by: Melatonin (Melatonin 3 Mg Tab) 6 mg PO BEDTIME [facility] Last Admin: 07/09/20 21:15 Dose: 6 mg Documented by: Montelukast Sodium (Montelukast 10 Mg Tab) 10 mg GTUBE DAILY [facility] Last Admin: 07/10/20 08:25 Dose: 10 mg Documented by: Morphine Sulfate (Morphine 2 Mg/Ml Syringe) 1 mg IVPUSH Q2H PRN PRN Reason: Pain Last Admin: 07/10/20 09:28 Dose: 1 mg Documented by: Multivitamins/Iron (Multivitamins With Iron Tab.Chew) 1 tab GTUBE DAILY [facility] Last Admin: 07/10/20 08:25 Dose: 1 tab Documented by: Ondansetron HCl (Ondansetron 4 Mg/2 Ml Sdv) 4 mg IV Q4H PRN PRN Reason: Nausea/Vomiting Pantoprazole Sodium (Pantoprazole 40 Mg Vial) 40 mg IV Q24H [facility] Last Admin: 07/09/20 21:21 Dose: 40 mg Documented by: Discontinued Medications Sodium Chloride (Normal Saline) 1,000 mls @ 125 mls/hr IV ASDIRECTED [facility] Last Admin: 07/09/20 10:35 Dose: 125 mls/hr Documented by: Sodium Chloride (Normal Saline) 500 mls @ 250 mls/hr IV ASDIRECTED ONE Stop: 07/09/20 14:59 Last Admin: 07/09/20 13:15 Dose: 250 mls/hr Documented by: Morphine Sulfate (Morphine 10 Mg/0.5 Ml Oral Syringe) 5 mg SL ONETIME ONE Stop: 07/08/20 23:57 Last Admin: 07/08/20 23:59 Dose: 5 mg Documented by: Morphine Sulfate (Morphine 2 Mg/Ml Syringe) 1 mg IVPUSH Q2H [facility] Last Admin: 07/09/20 03:19 Dose: 1 mg Documented by: Morphine Sulfate (Morphine 2 Mg/Ml Syringe) 1 mg IVPUSH Q2H [facility] Last Admin: 07/09/20 05:48 Dose: 1 mg Documented by: Morphine Sulfate (Morphine 2 Mg/Ml Syringe) 1 mg IVPUSH Q2H [facility] Last Admin: 07/09/20 10:40 Dose: Not Given Documented by: Pantoprazole Sodium (Pantoprazole 40 Mg Vial) 40 mg IV Q24H [facility] Last Admin: 07/09/20 03:24 Dose: 40 mg Documented by: - Exam Quality Assessment: No: Supplemental Oxygen General: Alert, No Acute Distress. No: Cooperative HEENT: Pupils Equal Lungs: Clear to Auscultation, Normal Respiratory Effort Cardiovascular: Regular Rate, Regular Rhythm GI/Abdominal Exam: No Distention, Tender Extremities: No Pedal Edema. No: Increased Warmth Skin: Warm, Dry Psy/Mental Status: Alert, Normal Affect - Patient Data Result Diagrams: 07/09/20 05:01 07/09/20 05:01 Sepsis Event Note - Evaluation Sepsis Screening Result: Severe Sepsis Risk - Focused Exam Vital Signs: Vital Signs Temp Pulse Resp BP Pulse Ox 07/10/20 08:00 35.5 C L 65 18 67/45 L 98 07/10/20 07:43 98 07/10/20 04:00 35.5 C L 64 20 79/46 L 98 07/10/20 03:00 97 07/10/20 02:12 65 64/35 L 100 07/10/20 00:00 35.5 C L 70 20 66/39 L 99 - Problem List Review Problem List Initiated/Reviewed/Updated: Yes - Plan Plan:: ASSESSMENT / PLAN ABDOMINAL PAIN-more comfortable today. -Resume tube feedings if possible -IV Zofran -Trial of morphine concentrate URINARY TRACT INFECTION -IV Antibiotic Rocephin 1 gram IV every 24 hours Pancytopenia-concern for underlying hematologic malignancy or bone marrow abnormality. Patient has transition to comfort cares and no additional work-up will be undertaken. Cerebral Palsy- declining health this past year, is severely disabled by this condition and requires daily assistance for ADL and tube feeding. Non-verbal with severe global delay. Aspiration risk- tube fed, has supra pubic cath., skin breakdown on left lateral hip and coccyx -apply dressing for prevention of skin break down- left lateral hip and coccyx -hold feeding due to nausea and vomiting, aspiration risk. -NightTime darken room at night- low noise -Daytime like sunlight, watching TV with bright colors. -activity- has a rattle in his bag likes to play with, chews on hands and blanket Hx of C-Diff-no active diarrhea -Currently on antibiotic therapy Palliative care-patient has transitioned to comfort cares only and hospice admission plan -Hospice consultation today -Morphine as needed for comfort Maintenance issues -Nutrition-Nothing by mouth -Hendrix catheter - has supra-pubic cath -DVT - SCD- if tolerate. no Lovenox due to anemia and thrombocytopenia -GI -not indicated CODE STATUS: DNR/DNI Disposition: I anticipate discharge back to his foster home tomorrow with hospice services Alon Avalos MD
[2020-07-10] MEDS: LORazepam 2 MG/ML SDV IV PRN (15:46)
[2020-07-10] MEDS: Melatonin 3 MG Tab PO SCH (21:30)
[2020-07-10] MEDS: Pantoprazole 40 MG Vial IV SCH (21:54)
[2020-07-11] MEDS: Morphine 10 MG/0.5 ML Oral Syringe PO PRN ×3 (01:24→12:34)
[2020-07-11] MEDS: cefTRIAXone 1 GM in Sodium Chloride 0.9% 50 ML IV SCH (01:26)
[2020-07-11] MEDS: LORazepam ORAL Concentrate 1MG/0.5ML U/D PO PRN ×2 (01:57→09:47)
--- NOTE | 2020-07-11 08:49 | PCM.PN ---
- General Info Date of Service: 07/11/20 Subjective Update: No acute events overnight. Patient is nonverbal and not able to provide any reliable history. He has received a couple doses of morphine and a couple doses of lorazepam for pain and restlessness, respectively. We were unable to coordinate resources, family and hospice to accommodate the patient to come home today so he will go home tomorrow morning. Functional Status: Reports: Other (non-verbal) - Review of Systems General: Denies: Fever - Patient Data Vitals - Most Recent: Last Vital Signs Temp 35.8 C L 07/11/20 08:00 Pulse 78 07/11/20 08:00 Resp 14 07/11/20 08:00 BP 76/47 L 07/11/20 08:00 Pulse Ox 96 07/11/20 08:00 Weight - Most Recent: 36.922 kg I&O - Last 24 Hours: Intake & Output 07/10/20 07/11/20 07/11/20 22:59 06:59 14:59 Intake Total 1136 413 Output Total 600 575 Balance 536 -162 Med Orders - Current: Current Medications Albuterol (Albuterol 0.083% 2.5 Mg/3 Ml Neb Soln) 2.5 mg NEB Q4H PRN PRN Reason: Shortness Of Breath/wheezing Fidaxomicin (Fidaxomicin 200 Mg Tab) 200 mg GTUBE BID [facility] Last Admin: 07/10/20 21:29 Dose: 200 mg Documented by: Ceftriaxone Sodium 1 gm/ (Sodium Chloride) 50 mls @ 100 mls/hr IV Q24H [facility] Last Admin: 07/11/20 01:26 Dose: 100 mls/hr Documented by: Lorazepam (Lorazepam 2 Mg/Ml Sdv) 1 mg IV Q6H PRN PRN Reason: Agitation Last Admin: 07/10/20 15:46 Dose: 1 mg Documented by: Lorazepam (Lorazepam Oral Concentrate 1mg/0.5ml U/D) 0.5 mg PO Q2H PRN PRN Reason: Agitation Last Admin: 07/11/20 01:57 Dose: 0.5 mg Documented by: Melatonin (Melatonin 3 Mg Tab) 6 mg PO BEDTIME [facility] Last Admin: 07/10/20 21:30 Dose: 6 mg Documented by: Montelukast Sodium (Montelukast 10 Mg Tab) 10 mg GTUBE DAILY [facility] Last Admin: 07/10/20 08:25 Dose: 10 mg Documented by: Morphine Sulfate (Morphine 10 Mg/0.5 Ml Oral Syringe) 5 mg PO Q2H PRN PRN Reason: Pain Last Admin: 07/11/20 08:34 Dose: 5 mg Documented by: Multivitamins/Iron (Multivitamins With Iron Tab.Chew) 1 tab GTUBE DAILY [facility] Last Admin: 07/10/20 08:25 Dose: 1 tab Documented by: Ondansetron HCl (Ondansetron 4 Mg/2 Ml Sdv) 4 mg IV Q4H PRN PRN Reason: Nausea/Vomiting Pantoprazole Sodium (Pantoprazole 40 Mg Vial) 40 mg IV Q24H [facility] Last Admin: 07/10/20 21:54 Dose: 40 mg Documented by: Discontinued Medications Sodium Chloride (Normal Saline) 1,000 mls @ 125 mls/hr IV ASDIRECTED [facility] Last Admin: 07/09/20 10:35 Dose: 125 mls/hr Documented by: Sodium Chloride (Normal Saline) 500 mls @ 250 mls/hr IV ASDIRECTED ONE Stop: 07/09/20 14:59 Last Admin: 07/09/20 13:15 Dose: 250 mls/hr Documented by: Sodium Chloride (Normal Saline) 1,000 mls @ 50 mls/hr IV ASDIRECTED [facility] Last Admin: 07/09/20 18:03 Dose: 50 mls/hr Documented by: Morphine Sulfate (Morphine 10 Mg/0.5 Ml Oral Syringe) 5 mg SL ONETIME ONE Stop: 07/08/20 23:57 Last Admin: 07/08/20 23:59 Dose: 5 mg Documented by: Morphine Sulfate (Morphine 2 Mg/Ml Syringe) 1 mg IVPUSH Q2H [facility] Last Admin: 07/09/20 03:19 Dose: 1 mg Documented by: Morphine Sulfate (Morphine 2 Mg/Ml Syringe) 1 mg IVPUSH Q2H [facility] Last Admin: 07/09/20 05:48 Dose: 1 mg Documented by: Morphine Sulfate (Morphine 2 Mg/Ml Syringe) 1 mg IVPUSH Q2H [facility] Last Admin: 07/09/20 10:40 Dose: Not Given Documented by: Morphine Sulfate (Morphine 2 Mg/Ml Syringe) 1 mg IVPUSH Q2H PRN PRN Reason: Pain Last Admin: 07/10/20 14:12 Dose: 1 mg Documented by: Pantoprazole Sodium (Pantoprazole 40 Mg Vial) 40 mg IV Q24H [facility] Last Admin: 07/09/20 03:24 Dose: 40 mg Documented by: - Exam Quality Assessment: No: Supplemental Oxygen General: Alert, No Acute Distress. No: Cooperative HEENT: Pupils Equal Lungs: Normal Respiratory Effort GI/Abdominal Exam: No Distention Extremities: No Pedal Edema Psy/Mental Status: Alert. No: Agitated - Patient Data Result Diagrams: 07/09/20 05:01 07/09/20 05:01 Sepsis Event Note - Evaluation Sepsis Screening Result: Severe Sepsis Risk - Focused Exam Vital Signs: Vital Signs Temp Pulse Resp BP Pulse Ox 07/11/20 08:00 35.8 C L 78 14 76/47 L 96 - Problem List Review Problem List Initiated/Reviewed/Updated: Yes - My Orders Last 24 Hours: My Active Orders 07/10/20 16:30 LORazepam [Ativan ORAL Concentrate 1MG/0.5 ML U/D] 0.5 mg PO Q2H PRN Morphine [Morphine 10 MG/0.5 ML Oral Syringe] 5 mg PO Q2H PRN 07/10/20 16:31 Convert IV to Saline Lock [OM.PC] Routine - Plan Plan:: ASSESSMENT / PLAN ABDOMINAL PAIN-more comfortable today. -Tube feedings -Symptomatic management of pain and nausea URINARY TRACT INFECTION -Continue antibiotics for 1 more day Pancytopenia-concern for underlying hematologic malignancy or bone marrow abnormality. Patient has transition to comfort cares and no additional work-up will be undertaken. Cerebral Palsy- declining health this past year, is severely disabled by this condition and requires daily assistance for ADL and tube feeding. Non-verbal with severe global delay. Aspiration risk- tube fed, has supra pubic cath., skin breakdown on left lateral hip and coccyx -apply dressing for prevention of skin break down- left lateral hip and coccyx -Continue tube feedings -NightTime darken room at night- low noise -Daytime like sunlight, watching TV with bright colors -activity- has a rattle in his bag likes to play with, chews on hands and blanket Hx of C-Diff-no active diarrhea -Currently on antibiotic therapy Palliative care-patient has transitioned to comfort cares only and hospice admission planned. -Morphine and lorazepam as needed for comfort Maintenance issues -Nutrition-tube feedings -Hendrix catheter - has supra-pubic cath -DVT -no longer indicated -GI -not indicated CODE STATUS: DNR/DNI Disposition: I anticipate discharge back to his foster home tomorrow with hospice services Alon Avalos MD
[2020-07-11] MEDS ORDERED: Magnesium Hydroxide 400 MG/5 ML Susp 30 ML Cup GTUBE PRN (08:58)
[2020-07-11] MEDS: Multivitamins with Iron Tab.Chew GTUBE SCH (10:01)
[2020-07-11] MEDS: Fidaxomicin 200 MG Tab GTUBE SCH ×2 (10:01→21:25)
[2020-07-11] MEDS: Montelukast 10 MG Tab GTUBE SCH (10:01)
[2020-07-11] MEDS: Melatonin 3 MG Tab PO SCH (21:25)
[2020-07-11] MEDS: Pantoprazole 40 MG Vial IV SCH (21:26)
[2020-07-12] MEDS: LORazepam ORAL Concentrate 1MG/0.5ML U/D PO PRN ×2 (00:05→08:28)
[2020-07-12] MEDS: Morphine 10 MG/0.5 ML Oral Syringe PO PRN ×2 (00:07→07:52)
[2020-07-12] MEDS: cefTRIAXone 1 GM in Sodium Chloride 0.9% 50 ML IV SCH (02:41)
[2020-07-12] MEDS: Fidaxomicin 200 MG Tab GTUBE SCH (08:28)
[2020-07-12] MEDS: Multivitamins with Iron Tab.Chew GTUBE SCH (08:28)
[2020-07-12] MEDS: Montelukast 10 MG Tab GTUBE SCH (08:28)
--- NOTE | 2020-07-12 08:56 | PCM.DCSUM1 ---
Discharge Summary - Hospital Course Brief History: 35-year-old male with advanced cerebral palsy who is nonverbal, recent C. difficile infection still receiving treatment who presented with abdominal pain nausea and vomiting. He was admitted for management of a urinary tract infection. Diagnosis: Stroke: No - Discharge Data Discharge Date: 07/12/20 Discharge Disposition: DC/Tfer to Hospice - Home 49 Condition: Stable - Referral to Home Health Primary Care Physician: Shaun Hayden MD - Discharge Diagnosis/Problem(s) (1) Cerebral palsy SNOMED Code(s): 247219674 ICD Code: G80.9 - CEREBRAL PALSY, UNSPECIFIED Status: Chronic Qualifiers: Cerebral palsy type: unspecified type Qualified Code(s): G80.9 - Cerebral palsy, unspecified (2) Pancytopenia SNOMED Code(s): 571875767 ICD Code: D61.818 - OTHER PANCYTOPENIA Status: Acute (3) Urinary tract infection SNOMED Code(s): 14462633 ICD Code: N39.0 - URINARY TRACT INFECTION, SITE NOT SPECIFIED Status: Acute Priority: Medium Qualifiers: Urinary tract infection type: catheter-associated UTI Indwelling urinary catheter type: cystostomy catheter Encounter type: initial encounter Qualified Code(s): T83.510A - Infection and inflammatory reaction due to cystostomy catheter, initial encounter; N39.0 - Urinary tract infection, site not specified (4) Mass of colon SNOMED Code(s): 233814989 ICD Code: K63.89 - OTHER SPECIFIED DISEASES OF INTESTINE Status: Chronic (5) History of Clostridioides difficile infection SNOMED Code(s): 359544662, 002898218 ICD Code: Z86.19 - PERSONAL HISTORY OF OTHER INFECTIOUS AND PARASITIC DISEASES Status: Chronic Priority: High (6) PEG (percutaneous endoscopic gastrostomy) status SNOMED Code(s): 813988534, 645490283 ICD Code: Z93.1 - GASTROSTOMY STATUS Status: Chronic - Patient Summary/Data Consults: Consultations 07/09/20 14:26 Consult to Hospice [CONS] Routine Comment: Physician Instructions: Reason for Consult: Colon cancer, pancytopenia, progressive weakness and malnutrition Hospital Course: Jerry presented to the emergency room with abdominal pain, vomiting and restle ssness. He has been going downhill recently with poor nutrition despite tube feedings. There is concern about underlying colon cancer, possibly lung cancer and potentially leukemia with pancytopenia. Work-up in the emergency room suggested that he had a urinary tract infection. He was started on antibiotics and admitted to the hospital for further management. The morning after admission the situation was discussed with his father who is his power of commonwealth attorney. The decision was made to transition to comfort care only at this point. The patient has been declining despite aggressive attempts to improve his situation at his retirement. There is concern about underlying malignancy and if he were to require a big surgery or potentially chemotherapy he would not be able to tolerate this because of his poor nutritional and functional status. Morphine and lorazepam were initiated to help with comfort. We did continue to treat his urinary tract infection. Hospice was consulted and they discussed the situation with his father as well as the prior authorization nurse at the retirement. Hospice admission was felt to be the best approach given his decline and poor status even before the troubles began. Patient appeared to have good control of his pain and restlessness utilizing morphine and lorazepam. We did adjust his flushes slightly with his tube feedings but the plan is to continue these at least for the time being. He will be discharged back to the retirement under the care of hospice along with his usual caretakers. He has completed adequate antibiotic therapy for his urinary tract infection. - Patient Instructions Diet, Other: Tube feeding - 1 can of Jevity QID, follow with 150 ml free water flush QID Activity: As Tolerated Other/Special Instructions: 1. Referral to hospice for comfort care approach. 2. Apply Allevyn dressing to sacrum and bony prominences on each hip every 7 days and as needed between if soiled or a come loose. 3. Pressure reduction mattress to help reduce risk of pressure injury. 4. CODE STATUS - DNR/DNI with comfort measures - Discharge Plan *PRESCRIPTION DRUG MONITORING PROGRAM REVIEWED*: Not Applicable *COPY OF PRESCRIPTION DRUG MONITORING REPORT IN PATIENT THU: Not Applicable Prescriptions/Med Rec: LORazepam [Ativan ORAL Concentrate 1MG/0.5 ML U/D] 0.5 mg GTUBE Q2H PRN #30 ml PRN Reason: Restlessness/Agitation Morphine [Morphine 20 MG/ML Soln] 5 mg GTUBE Q2H PRN #30 ml PRN Reason: Pain Home Medications: Home Meds Montelukast [Singulair] 10 mg GTUBE DAILY 04/21/19 [History] Lactose-Reduced Food/Fiber [Jevity 1.5 Osvaldo Liquid] 8 oz GTUBE QID 06/05/20 [History] Fidaxomicin [Dificid] 200 mg GTUBE BID #28 tablet 06/08/20 [Rx] Multivit-Min/FA/Lycopen/Lutein [Certavite Senior Tablet] 1 tab PO DAILY 07/09/20 [History] LORazepam [Ativan ORAL Concentrate 1MG/0.5 ML U/D] 0.5 mg GTUBE Q2H PRN #30 ml 07/12/20 [Rx] Melatonin 5 mg GTUBE BEDTIME #0 07/12/20 [Rx] Morphine [Morphine 20 MG/ML Soln] 5 mg GTUBE Q2H PRN #30 ml 07/12/20 [Rx] Pantoprazole [ProTONIX] 40 mg GTUBE ACBREAKFAST #30 tab.cr 07/12/20 [Rx] Oxygen Therapy Mode: Room Air Patient Handouts: Preventing Pressure Injuries - Discharge Summary/Plan Comment DC Time >30 min.: Yes (40-hospice discharge ) - Patient Data Vitals - Most Recent: Last Vital Signs Temp 36.3 C 07/12/20 07:47 Pulse 78 07/12/20 07:47 Resp 16 07/12/20 07:47 BP 80/53 L 07/12/20 07:47 Pulse Ox 99 07/12/20 07:47 Weight - Most Recent: 36.922 kg I&O - Last 24 hours: Intake & Output 07/11/20 07/12/20 07/12/20 22:59 06:59 14:59 Intake Total 410 716 228 Output Total 500 Balance -90 716 228 Med Orders - Current: Current Medications Albuterol (Albuterol 0.083% 2.5 Mg/3 Ml Neb Soln) 2.5 mg NEB Q4H PRN PRN Reason: Shortness Of Breath/wheezing Fidaxomicin (Fidaxomicin 200 Mg Tab) 200 mg GTUBE BID [facility] Last Admin: 07/12/20 08:28 Dose: 200 mg Documented by: Ceftriaxone Sodium 1 gm/ (Sodium Chloride) 50 mls @ 100 mls/hr IV Q24H [facility] Last Admin: 07/12/20 02:41 Dose: 100 mls/hr Documented by: Lorazepam (Lorazepam 2 Mg/Ml Sdv) 1 mg IV Q6H PRN PRN Reason: Agitation Last Admin: 07/10/20 15:46 Dose: 1 mg Documented by: Lorazepam (Lorazepam Oral Concentrate 1mg/0.5ml U/D) 0.5 mg PO Q2H PRN PRN Reason: Agitation Last Admin: 07/12/20 08:28 Dose: 0.5 mg Documented by: Magnesium Hydroxide (Magnesium Hydroxide 400 Mg/5 Ml Susp 30 Ml Cup) 30 ml GTUBE DAILY PRN PRN Reason: Constipation Last Admin: 07/12/20 08:52 Dose: 30 ml Documented by: Melatonin (Melatonin 3 Mg Tab) 6 mg PO BEDTIME [facility] Last Admin: 07/11/20 21:25 Dose: 6 mg Documented by: Montelukast Sodium (Montelukast 10 Mg Tab) 10 mg GTUBE DAILY [facility] Last Admin: 07/12/20 08:28 Dose: 10 mg Documented by: Morphine Sulfate (Morphine 10 Mg/0.5 Ml Oral Syringe) 5 mg PO Q2H PRN PRN Reason: Pain Last Admin: 07/12/20 07:52 Dose: 5 mg Documented by: Multivitamins/Iron (Multivitamins With Iron Tab.Chew) 1 tab GTUBE DAILY [facility] Last Admin: 07/12/20 08:28 Dose: 1 tab Documented by: Ondansetron HCl (Ondansetron 4 Mg/2 Ml Sdv) 4 mg IV Q4H PRN PRN Reason: Nausea/Vomiting Pantoprazole Sodium (Pantoprazole 40 Mg Vial) 40 mg IV Q24H [facility] Last Admin: 07/11/20 21:26 Dose: 40 mg Documented by: Discontinued Medications Sodium Chloride (Normal Saline) 1,000 mls @ 125 mls/hr IV ASDIRECTED [facility] Last Admin: 07/09/20 10:35 Dose: 125 mls/hr Documented by: Sodium Chloride (Normal Saline) 500 mls @ 250 mls/hr IV ASDIRECTED ONE Stop: 07/09/20 14:59 Last Admin: 07/09/20 13:15 Dose: 250 mls/hr Documented by: Sodium Chloride (Normal Saline) 1,000 mls @ 50 mls/hr IV ASDIRECTED [facility] Last Admin: 07/09/20 18:03 Dose: 50 mls/hr Documented by: Morphine Sulfate (Morphine 10 Mg/0.5 Ml Oral Syringe) 5 mg SL ONETIME ONE Stop: 07/08/20 23:57 Last Admin: 07/08/20 23:59 Dose: 5 mg Documented by: Morphine Sulfate (Morphine 2 Mg/Ml Syringe) 1 mg IVPUSH Q2H [facility] Last Admin: 07/09/20 03:19 Dose: 1 mg Documented by: Morphine Sulfate (Morphine 2 Mg/Ml Syringe) 1 mg IVPUSH Q2H [facility] Last Admin: 07/09/20 05:48 Dose: 1 mg Documented by: Morphine Sulfate (Morphine 2 Mg/Ml Syringe) 1 mg IVPUSH Q2H [facility] Last Admin: 07/09/20 10:40 Dose: Not Given Documented by: Morphine Sulfate (Morphine 2 Mg/Ml Syringe) 1 mg IVPUSH Q2H PRN PRN Reason: Pain Last Admin: 07/10/20 14:12 Dose: 1 mg Documented by: Pantoprazole Sodium (Pantoprazole 40 Mg Vial) 40 mg IV Q24H [facility] Last Admin: 07/09/20 03:24 Dose: 40 mg Documented by:
== END 2020-07-12 09:32 | disposition hospice, home (50) | DRG 698 ==
LOC: JP.ED 22:39 → JP.ICU 07-09 01:33
PROVIDERS: ADMIT Hospitalist; ATTEND Internal Medicine
DX: R10.9 Unspecified abdominal pain (principal); T83.510A Infection and inflammatory reaction due to cystostomy catheter, initial encounter; G80.0 Spastic quadriplegic cerebral palsy; R11.10 Vomiting, unspecified; E43 Unspecified severe protein-calorie malnutrition; N39.0 Urinary tract infection, site not specified; R33.9 Retention of urine, unspecified; D61.818 Other pancytopenia; J96.10 Chronic respiratory failure, unspecified whether with hypoxia or hypercapnia; D69.3 Immune thrombocytopenic purpura; C18.9 Malignant neoplasm of colon, unspecified; C34.90 Malignant neoplasm of unspecified part of unspecified bronchus or lung; C95.90 Leukemia, unspecified not having achieved remission; Z68.1 Body mass index [BMI] 19.9 or less, adult; A04.72 Enterocolitis due to Clostridium difficile, not specified as recurrent; K63.89 Other specified diseases of intestine; G80.9 Cerebral palsy, unspecified; Z88.1 Allergy status to other antibiotic agents; Y84.6 Urinary catheterization as the cause of abnormal reaction of the patient, or of later complication, without mention of misadventure at the time of the procedure; Z51.5 Encounter for palliative care; J45.909 Unspecified asthma, uncomplicated; N31.9 Neuromuscular dysfunction of bladder, unspecified; K59.09 Other constipation; K21.9 Gastro-esophageal reflux disease without esophagitis; E83.42 Hypomagnesemia; D64.9 Anemia, unspecified; R62.50 Unspecified lack of expected normal physiological development in childhood; Z66 Do not resuscitate; Z86.19 Personal history of other infectious and parasitic diseases; Z93.1 Gastrostomy status; Z88.0 Allergy status to penicillin; Z79.899 Other long term (current) drug therapy; Z93.6 Other artificial openings of urinary tract status
CPT/HCPCS: 36415; 80048; 80053; 85025; 99222; 99232; 99239; 99284; 99285; A9270-GY; C9113; J0696; J2060; J2270; J7030